=== PATIENT | male | born 1930 | race Caucasian/White ===

== ENCOUNTER 2017-03-07 16:03 | Observation (INO) | payer MEDICARE ==
--- NOTE | 2017-03-07 16:13 | EDM.PDOC ---
ED HPI GENERAL MEDICAL PROBLEM - General Stated Complaint: UNK Time Seen by Provider: 03/07/17 16:09 Source of Information: Reports: Patient - History of Present Illness INITIAL COMMENTS - FREE TEXT/NARRATIVE: HISTORY AND PHYSICAL: History of present illness: [] Patient presents via ambulance with generalized weakness, this morning he was up and about normal state of health, went out on his tractor 2 disc some tree rows and became very fatigued, he presents as such. He states initially he did have some dizziness this has resolved Or patient has been bouncing between 42 and 54 and heart rate, he is on atenolol , or a brief period I did witness the patient had a short run of atrial fibrillation lasting 3-5 seconds at a rate of 1:30 on the monitor, was converted on its own to sinus at 50 beats per minute Denies fever nausea vomiting chills sweats or chest pain shortness breath headache dizziness or palpitation no bowel or urine symptoms Review of systems: As per history of present illness and below otherwise all systems reviewed and negative. Past medical history: As per history of present illness and as reviewed below otherwise noncontributory. Surgical history: As per history of present illness and as reviewed below otherwise noncontributory. Social history: No reported history of drug or alcohol abuse. Family history: As per history of present illness and as reviewed below otherwise noncontributory. Physical exam: HEENT: Atraumatic, normocephalic, pupils reactive, negative for conjunctival pallor or scleral icterus, mucous membranes moist, throat clear, neck supple, nontender, trachea midline. Lungs: Clear to auscultation, breath sounds equal bilaterally, chest nontender. Heart: S1S2, regular, negative for clicks, rubs, or JVD. Abdomen: Soft, nondistended, nontender. Negative for masses or hepatosplenomegaly. Negative for costovertebral tenderness. Pelvis: Stable nontender. Genitourinary: Deferred. Rectal: Deferred. Extremities: Atraumatic, negative for cords or calf pain. Neurovascular unremarkable. Neuro: Awake, alert, oriented. Cranial nerves II through XII unremarkable. Cerebellum unremarkable. Motor and sensory unremarkable throughout. Exam nonfocal. Diagnostics: [] Lab as below EKG Chest one view Head CT Therapeutics: [] Beta debbie held Impression: [] Generalized weakness Bradycardia Definitive disposition and diagnosis as appropriate pending reevaluation and review of above. - Related Data Allergies Allergy/AdvReac Type Severity Reaction Status Date / Time Sulfa (Sulfonamide Allergy Mild Rash Verified 03/07/17 16:42 Antibiotics) Home Meds: Home Meds Aspirin/Calcium Carbonate/Mag [Aspirin Buffered 325 mg Tab] 325 mg PO BEDTIME [History] Gabapentin [Neurontin] 300 mg PO BID 12/10/15 [History] Hydrochlorothiazide 12.5 mg PO DAILY 12/10/15 [History] Lisinopril 20 mg PO DAILY 03/07/17 [History] Meloxicam 7.5 mg PO BID 03/07/17 [History] Past Medical History HEENT History: Reports: None Cardiovascular History: Reports: Heart Failure, Hypertension Respiratory History: Reports: None Gastrointestinal History: Reports: None Genitourinary History: Reports: Prostate disorder Musculoskeletal History: Reports: Arthritis, Other (see below) Other Musculoskeletal History: Weakness to one side, uses cane Neurological History: Reports: CVA (16 years ago) Psychiatric History: Reports: None Endocrine/Metabolic History: Reports: None Hematologic History: Reports: None Immunologic History: Reports: None Oncologic (Cancer) History: Reports: None Dermatologic History: Reports: None - Infectious Disease History Infectious Disease History: Reports: Measles, Mumps - Past Surgical History GI Surgical History: Reports: Appendectomy, Colonoscopy Musculoskeletal Surgical History: Reports: Hip replacement Social & Family History - Family History Family Medical History: Noncontributory - Tobacco Use Smoking Status *Q: Current Every Day Smoker Years of Tobacco use: 30 Packs/Tins Daily: 0.5 - Recreational Drug Use Recreational Drug Use: No ED ROS GENERAL - Review of Systems Review Of Systems: ROS reveals no pertinent complaints other than HPI. ED EXAM, GENERAL - Physical Exam Exam: See Below Course - Vital Signs Last Recorded V/S: Last Vital Signs Temp 35.6 C 03/07/17 16:05 Pulse 48 L 03/07/17 16:05 Resp 20 03/07/17 16:05 BP 156/84 H 03/07/17 16:05 Pulse Ox 97 03/07/17 16:05 - Orders/Labs/Meds Orders: Active Orders 24 hr Category Date Time Status Admission Status [Patient Status] [ADT] Stat ADT 03/07/17 17:13 Ordered EKG Documentation Completion [RC] STAT Care 03/07/17 16:08 Active Chest 1V Frontal [CR] Stat Exams 03/07/17 16:08 Taken Head wo Cont [CT] Stat Exams 03/07/17 16:13 Taken UA W/MICROSCOPIC [URIN] Stat Lab 03/07/17 16:08 Uncollected Sodium Chloride 0.9% [Normal Saline] 1,000 ml Med 03/07/17 17:00 Active IV STAT Medication Orders Sodium Chloride (Normal Saline) 1,000 mls @ 125 mls/hr IV STAT WINNIE Last Admin: 03/07/17 17:11 Dose: 125 mls/hr Labs: Laboratory Tests 03/07/17 03/07/17 03/07/17 Range/Units 16:15 16:15 16:15 WBC 8.92 (4.0-11.0) K/uL RBC 4.93 (4.50-5.90) M/uL Hgb 14.2 (13.0-17.0) g/dL Hct 43.3 (38.0-50.0) % MCV 87.8 (80.0-98.0) fL MCH 28.8 (27.0-32.0) pg MCHC 32.8 (31.0-37.0) g/dL RDW Std Deviation 48.4 (28.0-62.0) fl RDW Coeff of Ellyn 15 (11.0-15.0) % Plt Count 345 (150-400) K/uL MPV 10.00 (7.40-12.00) fL Neut % (Auto) 80.1 H (48.0-80.0) % Lymph % (Auto) 13.2 L (16.0-40.0) % [place] % (Auto) 4.7 (0.0-15.0) % Eos % (Auto) 1.3 (0.0-7.0) % Baso % (Auto) 0.7 (0.0-1.5) % Neut # (Auto) 7.1 H (1.4-5.7) K/uL Lymph # (Auto) 1.2 (0.6-2.4) K/uL [place] # (Auto) 0.4 (0.0-0.8) K/uL Eos # (Auto) 0.1 (0.0-0.7) K/uL Baso # (Auto) 0.1 (0.0-0.1) K/uL Nucleated RBC % 0.0 /100WBC Nucleated RBCs # 0 K/uL Sodium 140 (136-146) mmol/L Potassium 4.2 (3.5-5.1) mmol/L Chloride 106 (98-110) mmol/L Carbon Dioxide 21 (21-31) mmol/L BUN 28 H (6.0-23.0) mg/dL Creatinine 1.1 (0.6-1.5) mg/dL Est Cr Clr Drug Dosing 45.61 mL/min Estimated GFR (MDRD) > 60.0 ml/min Glucose 111 H (60-110) mg/dL Calcium 9.8 (8.8-10.8) mg/dL Total Bilirubin 0.7 (0.1-1.5) mg/dL AST 25 (5-40) IU/L ALT 14 (8-54) IU/L Alkaline Phosphatase 80 (40-150) Creatine Kinase 280 H (9-236) IU/L CK-MB (CK-2) 7.5 H (0-6.6) ng/ml Troponin I < 0.10 (0.0-0.29) NG/ML Total Protein 7.7 (6.0-8.0) g/dL Albumin 4.8 (3.4-4.8) g/dL Globulin 2.9 (2.0-3.5) g/dL Albumin/Globulin Ratio 1.7 (1.3-2.8) Meds: Medications Generic Name Dose Route Start Last Admin Trade Name Moon PRN Reason Stop Dose Admin Sodium Chloride 1,000 mls @ 125 mls/hr 03/07/17 17:00 03/07/17 17:11 Normal Saline IV 125 mls/hr STAT WINNIE Administration Departure - Departure Time of Disposition: 17:16 Disposition: Admitted As Inpatient 68 Condition: fair Clinical Impression: Bradycardia - My Orders Last 24 Hours: My Active Orders 03/07/17 16:08 EKG Documentation Completion [RC] STAT Chest 1V Frontal [CR] Stat UA W/MICROSCOPIC [URIN] Stat 03/07/17 16:13 Head wo Cont [CT] Stat 03/07/17 17:00 Sodium Chloride 0.9% [Normal Saline] 1,000 ml IV STAT 03/07/17 17:13 Admission Status [Patient Status] [ADT] Stat - Assessment/Plan Last 24 Hours: My Active Orders 03/07/17 16:08 EKG Documentation Completion [RC] STAT Chest 1V Frontal [CR] Stat UA W/MICROSCOPIC [URIN] Stat 03/07/17 16:13 Head wo Cont [CT] Stat 03/07/17 17:00 Sodium Chloride 0.9% [Normal Saline] 1,000 ml IV STAT 03/07/17 17:13 Admission Status [Patient Status] [ADT] Stat
[2017-03-07 16:46] LABS: CHLORIDE,CL 106 mmol/L (98-110); SODIUM,NA 140 mmol/L (136-146)
[2017-03-07] MEDS ORDERED: Sodium Chloride 0.9% 1,000 ML IV SCH (17:00)
[2017-03-07] MEDS ORDERED: Sodium Chloride 0.9% 2.5 ML Syringe FLUSH PRN (18:34)
[2017-03-07] MEDS ORDERED: Sodium Chloride 0.9% 10 ML Syringe FLUSH PRN (18:34)
[2017-03-07] MEDS ORDERED: Bisacodyl 5 MG Tab PO PRN (19:49)
[2017-03-07] MEDS ORDERED: Temazepam 15 MG Cap PO PRN (19:49)
[2017-03-07] MEDS ORDERED: Acetaminophen 325 MG Tab PO PRN (19:49)
[2017-03-07] MEDS ORDERED: Meloxicam 7.5 MG Tab PO PRN (19:51)
--- NOTE | 2017-03-07 19:54 | PCM.HP ---
H&P History of Present Illness - General Date of Service: 03/07/17 Admit Problem/Dx: Admission Diagnosis/Problem Admission Diagnosis/Problem Bradycardia Source of Information: Patient, Family, Provider - History of Present Illness Initial Comments - Free Text/Narative: He presented to the emergency department today after he felt very weak when he was on to a tractor he was seen in the emergency department and noted to have a sinus bradycardia with a heart rate in the high 30s per minute. Reportedly his told the emergency room staff that he had been on atenolol. However when I questioned him he stated that his physician has stopped the atenolol about a month ago because of a slow heart rate. He is feeling better now. Headache Pain Score (Numeric/FACES): 3 - Related Data Allergies/Adverse Reactions: Allergies Allergy/AdvReac Type Severity Reaction Status Date / Time Sulfa (Sulfonamide Allergy Mild Rash Verified 03/07/17 16:42 Antibiotics) Home Medications: Home Meds Aspirin/Calcium Carbonate/Mag [Aspirin Buffered 325 mg Tab] 325 mg PO BEDTIME [History] Gabapentin [Neurontin] 300 mg PO BID 12/10/15 [History] Hydrochlorothiazide 12.5 mg PO DAILY 12/10/15 [History] Lisinopril 10 mg PO DAILY 03/07/17 [History] Meloxicam 7.5 mg PO BID PRN 03/07/17 [History] Ranitidine [Zantac] 300 mg PO BID 03/07/17 [History] Past Medical History HEENT History: Reports: None Cardiovascular History: Reports: Hypertension Other Cardiovascular History: "low heart rate" Respiratory History: Reports: None, Other (see below) (No known history of COPD) Gastrointestinal History: Reports: None, Other (see below) (GERD) Other Gastrointestinal History: heartburn Genitourinary History: Reports: Prostate disorder. Denies: Chronic renal insuffiency Musculoskeletal History: Reports: Arthritis, Other (see below) Other Musculoskeletal History: Weakness to one side, uses cane Neurological History: Reports: CVA (He reports that he had a 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 He states that his unilateral weakness has resolved.) Psychiatric History: Reports: None Endocrine/Metabolic History: Reports: None. Denies: Green[place]'s disease, Diabetes , type I, Diabetes, type II Hematologic History: Reports: Blood transfusion(s) Immunologic History: Reports: None Oncologic (Cancer) History: Reports: None Dermatologic History: Reports: None - Infectious Disease History Infectious Disease History: Reports: Chicken pox, Measles, Mumps - Past Surgical History Cardiovascular Surgical History: Reports: None GI Surgical History: Reports: Appendectomy, Colonoscopy Neurological Surgical History: Reports: Other (see below) Other Neurological Surgeries/Procedures: spinal surgery 7 months prior to admission Musculoskeletal Surgical History: Reports: Hip replacement, Other (see below) Other Musculoskeletal Surgeries/Procedures:: bilateral hip Social & Family History - Family History Family Medical History: Noncontributory Oncologic: Reports: Esophageal - Tobacco Use Smoking Status *Q: Current Every Day Smoker Years of Tobacco use: 25 Packs/Tins Daily: 0.2 Used Tobacco, but Quit: No - Caffeine Use Caffeine Use: Reports: Coffee - Alcohol Use Date/Time of Last Drink Comment: He denies current alcohol use - Recreational Drug Use Recreational Drug Use: No H&P Review of Systems - Review of Systems: Review Of Systems: See Below General: Denies: fever, chills HEENT: Denies: sore throat Pulmonary: Denies: Shortness of Breath, Cough, Sputum Cardiovascular: Denies: chest pain Gastrointestinal: Reports: Other (Occasional epigastric discomfort which he relates to gastroesophageal reflux.). Denies: Abdominal pain, Hematemesis, Melena, Nausea Genitourinary: Denies: dysuria, frequency, burning, hematuria Psychiatric: Denies: agitation Neurological: Denies: Confusion, Seizure, Trouble Speaking, Difficulty Walking Exam - Exam Exam: See Below - Vital Signs Vital Signs: Last Vital Signs Temp 96.5 F 03/07/17 17:35 Pulse 98 03/07/17 17:35 Resp 16 03/07/17 17:35 BP 117/54 L 03/07/17 17:35 Pulse Ox 98 03/07/17 17:35 Weight: 61.7 kg - Exam General: alert, oriented, cooperative HEENT: EOMI, Mucosa moist & pink, Other (Multiple missing teeth) Neck: supple, trachea midline Lungs: Clear to auscultation, Normal respiratory effort. No: Crackles, Rales, Rhonchi Cardiovascular: regular rate, regular rhythm (Heart sounds are very distant), bradycardia Abdomen: soft. No: tenderness (Male) Exam: Deferred Extremities: No: edema Neurological: cranial nerves intact, normal speech Neuro Extensive - Mental Status: normal mood/affect Neuro Extensive - Motor, Sensory, Reflexes: No: facial palsy (L), facial palsy ( R), hemiplagia (L), hemiplagia (R) Psychiatric: normal affect, normal mood. No: agitated - Patient Data Result Diagrams: 03/07/17 16:15 03/07/17 16:15 *Q Meaningful Use (ADM) - VTE *Q VTE Criteria *Q: - Stroke *Q Stroke Criteria *Q: - AMI *Q AMI Criteria *Q: - Problem List (1) Bradycardia SNOMED Code(s): 01352708 ICD Code: R00.1 - BRADYCARDIA, UNSPECIFIED Status: Acute Current Visit: Yes Problem List Initiated/Reviewed/Updated: Yes Orders Last 24hrs: Active Orders 24 hr Category Date Time Status Activity as Tolerated [RC] .Routine Care 03/07/17 18:32 Active Antiembolic Devices [RC] PER UNIT ROUTINE Care 03/07/17 19:51 Ordered Oxygen Therapy [RC] PRN Care 03/07/17 19:49 Ordered Telemetry Monitoring [Cardiac Monitoring] [RC] Q8H Care 03/07/17 17:30 Active VTE/DVT Education [RC] PER UNIT ROUTINE Care 03/07/17 19:49 Ordered Vital Signs [RC] Q4H Care 03/07/17 19:49 Ordered Regular Diet [DIET] Diet 03/07/17 Dinner Active MAGNESIUM [CHEM] Routine Lab 03/07/17 19:49 Ordered Acetaminophen [Tylenol] Med 03/07/17 19:49 Ordered 650 mg PO Q4H PRN Aspirin/Calcium Carbonate/Mag [Aspirin Buffered 325 mg Med 03/07/17 21:00 Ordered Tab] 325 mg PO BEDTIME Bisacodyl [Dulcolax] Med 03/07/17 19:49 Ordered 5 mg PO DAILY PRN Gabapentin [Neurontin] Med 03/07/17 21:00 Ordered 300 mg PO BID Hydrochlorothiazide [Hydrochlorothiazide] Med 03/08/17 09:00 Ordered 12.5 mg PO DAILY Lisinopril Med 03/08/17 09:00 Ordered 10 mg PO DAILY Meloxicam [Mobic] Med 03/07/17 19:51 Ordered 7.5 mg PO BID PRN Ranitidine Med 03/07/17 21:00 Ordered 300 mg PO BID Sodium Chloride 0.9% [Saline Flush] Med 03/07/17 18:34 Active 10 ml FLUSH ASDIRECTED PRN Sodium Chloride 0.9% [Saline Flush] Med 03/07/17 18:34 Active 2.5 ml FLUSH ASDIRECTED PRN Temazepam [Restoril] Med 03/07/17 19:49 Ordered 15 mg PO BEDTIME PRN Convert IV to Saline Lock [OM.PC] Routine Oth 03/07/17 18:34 Ordered Sequential Compression Device [OM.PC] Per Unit Routine Oth 03/07/17 19:50 Ordered Resuscitation Status Routine Resus Stat 03/07/17 19:49 Ordered Medication Orders Sodium Chloride (Saline Flush) 10 ml FLUSH ASDIRECTED PRN PRN Reason: Keep Vein Open Sodium Chloride (Saline Flush) 2.5 ml FLUSH ASDIRECTED PRN PRN Reason: Keep Vein Open Assessment/Plan Comment:: Initially it was thought that he has been on a beta debbie. However he suggest that he stop the beta debbie about a month ago. I advised we'll watch him overnight and discuss whether or not he may be in patient versus outpatient cardiology referral for consideration of pacemaker.
[2017-03-07] MEDS ORDERED: Aspirin 325 MG Tab.EC PO SCH (21:00)
[2017-03-07] MEDS: Gabapentin 300 MG Cap PO SCH (21:13)
[2017-03-07] MEDS: Famotidine 20 MG Tab PO SCH (21:13)
[2017-03-08] MEDS: Famotidine 20 MG Tab PO SCH (08:58)
[2017-03-08 08:59] VITALS: BP 103/55
[2017-03-08] MEDS: Gabapentin 300 MG Cap PO SCH (08:59)
[2017-03-08] MEDS ORDERED: Hydrochlorothiazide 12.5 MG Cap PO SCH (09:00)
[2017-03-08] MEDS ORDERED: Lisinopril 10 MG Tab PO SCH (09:00)
--- NOTE | 2017-03-08 10:51 | PCM.DCSUM1 ---
Discharge Summary - Hospital Course Brief History: He was admitted with symptomatic bradycardia as per history and physical examination - Discharge Data Discharge Date: 03/08/17 Discharge Disposition: Home, Self-Care 01 Condition: Fair - Discharge Diagnosis/Problem(s) (1) Bradycardia SNOMED Code(s): 62092783 ICD Code: R00.1 - BRADYCARDIA, UNSPECIFIED Status: Acute Current Visit: Yes - Patient Summary/Data Hospital Course: Initially he said he had been taking atenolol. Later he said that he had not taken it for a month. Name event he was not given any beta debbie. His heart rate remained in a sinus rhythm with bradycardia. His heart rate did vary from the low 50s to greater than 60 / min. . He is feeling much better at discharge. Initially I had advised him that he would likely need a pacemaker. However he has shown a bradycardia in the hospital but did not within a persistent heart rate below 50. I recommended therefore that he followup with Dr. Ceballos in the next 2 weeks. Also to followup if signs or symptoms of dizziness or weakness occur. Atenolol is discontinued but may have been discontinued previously. I advised that as he is improving it is not certain that he will need a pacemaker. I advised a pacemaker still may be a possibility the future. Assessment: sinus bradycardia. follow up with Dr Ceballos within two weeks. - Discharge Plan Home Medications: Home Meds Aspirin/Calcium Carbonate/Mag [Aspirin Buffered 325 mg Tab] 325 mg PO BEDTIME [History] Gabapentin [Neurontin] 300 mg PO BID 12/10/15 [History] Hydrochlorothiazide 12.5 mg PO DAILY 12/10/15 [History] Lisinopril 10 mg PO DAILY 03/07/17 [History] Meloxicam 7.5 mg PO BID PRN 03/07/17 [History] Ranitidine [Zantac] 300 mg PO BID 03/07/17 [History] Forms: ED Department Discharge Referrals: Nestor Ceballos MD [Primary Care Provider] - - Patient Data Vitals - Most Recent: Last Vital Signs Temp 97.1 F 03/08/17 08:00 Pulse 65 03/08/17 08:00 Resp 18 03/08/17 08:00 BP 103/55 L 03/08/17 08:59 Pulse Ox 93 L 03/08/17 08:00 Weight - Most Recent: 61.7 kg I&O - Last 24 hours: Intake & Output 03/07/17 03/08/17 03/08/17 22:59 06:59 14:59 Intake Total 400 Output Total 300 Balance 100 Lab Results - Last 24 hrs: Laboratory Results - last 24 hr 03/07/17 03/08/17 Range/Units 20:15 02:00 Troponin I < 0.10 < 0.10 (0.0-0.29) NG/ML Med Orders - Current: Current Medications Acetaminophen (Tylenol) 650 mg PO Q4H PRN PRN Reason: Pain (Mild 1-3)/fever Aspirin (Ecotrin) 325 mg PO BEDTIME [facility] Last Admin: 03/07/17 21:13 Dose: 325 mg Bisacodyl (Dulcolax) 5 mg PO DAILY PRN PRN Reason: Constipation Famotidine (Pepcid) 20 mg PO BID [facility] Last Admin: 03/08/17 08:58 Dose: 20 mg Gabapentin (Neurontin) 300 mg PO BID [facility] Last Admin: 03/08/17 08:59 Dose: 300 mg Hydrochlorothiazide (Hydrochlorothiazide) 12.5 mg PO DAILY [facility] Last Admin: 03/08/17 08:58 Dose: 12.5 mg Lisinopril (Prinivil) 10 mg PO DAILY [facility] Last Admin: 03/08/17 08:59 Dose: 10 mg Meloxicam (Mobic) 7.5 mg PO BID PRN PRN Reason: back pain Sodium Chloride (Saline Flush) 10 ml FLUSH ASDIRECTED PRN PRN Reason: Keep Vein Open Sodium Chloride (Saline Flush) 2.5 ml FLUSH ASDIRECTED PRN PRN Reason: Keep Vein Open Temazepam (Restoril) 15 mg PO BEDTIME PRN PRN Reason: Sleep Last Admin: 03/07/17 23:41 Dose: 15 mg Discontinued Medications Sodium Chloride (Normal Saline) 1,000 mls @ 125 mls/hr IV STAT [facility] Last Admin: 03/07/17 17:11 Dose: 125 mls/hr *Q Meaningful Use (DIS) - VTE *Q VTE Criteria *Q: - Stroke *Q Stroke Criteria *Q: - AMI *Q AMI Criteria *Q:
--- NOTE | 2017-03-09 10:27 | CT ---
EXAM DATE: 03/07/17 PATIENT'S AGE: 86 Patient: MILAN CARR Facility: [place], [place] Site . Site : [id number] Study: CT Head [id number]/22/2017 4:43:04 PM Ordering Physician: Eldon Velazquez Final Report: INDICATION: Weak. Dizzy. TECHNIQUE: CT head without IV contrast. FINDINGS: Small amounts of fluid opacification in the right ethmoidal sinus is less diffuse than previous. The fluid and mucosal thickening in the right maxillary sinus has resolved. 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 Tiny additional old lacunar infarct in the right basal ganglia more laterally not well seen on the prior study. Mild diffuse cerebral and cerebellar atrophy. No intracranial hemorrhage, edema, or mass-effect. Remainder negative. IMPRESSION: 1. No acute intracranial disease. Chronic intracranial disease as above. 2. Minimal inflammatory changes in the right ethmoidal sinuses less prominent. Dictated by Coredll Smith MD @ 03/07/2017 4:50:27 PM Dictated by: Cordell Smith MD @ 03/07/2017 16:50:36 (Electronic Signature) Report Signed by Proxy and Original Signed Document filed in the Medical Record. MTDD
--- NOTE | 2017-03-09 10:28 | CR ---
EXAM DATE: 03/07/17 PATIENT'S AGE: 86 Patient: MILAN CARR Facility: [place], [place] Site . Site : [id number] Study: XRay Chest [id number]/22/2017 4:46:49 PM Ordering Physician: Eldon Velazquez Final Report: HISTORY: Weak and dizzy. Findings: Single AP view of the chest is provided. The lungs are normally expanded and clear. No pleural effusion or pneumothorax is seen. Cardiac silhouette size is within normal limits. Impression: Clear lungs. Dictated by Yves Bennett MD @ Mar 07 2017 5:08PM (Electronic Signature) Report Signed by Proxy and Original Signed Document filed in the Medical Record. MTDD
== END 2017-03-08 11:00 | disposition home or self-care (01) ==
LOC: MW.ED 16:03 → MW.MS 17:13 → MW.ED 17:28
PROVIDERS: ADMIT Family Medicine; ATTEND Family Medicine
DX: R00.1 Bradycardia, unspecified (principal); I10 Essential (primary) hypertension; K21.9 Gastro-esophageal reflux disease without esophagitis; M19.90 Unspecified osteoarthritis, unspecified site; Z86.73 Personal history of transient ischemic attack (TIA), and cerebral infarction without residual deficits; Z79.82 Long term (current) use of aspirin; Z79.899 Other long term (current) drug therapy; Z88.2 Allergy status to sulfonamides; F17.200 Nicotine dependence, unspecified, uncomplicated
CPT/HCPCS: 36415; 70450; 71010; 80053; 82550; 82553; 83735; 84484; 85025; 93005; 99285; A9270; J7040; G0378

== ENCOUNTER → 2017-03-23 | Outpatient (CLI) | payer MEDICARE | LOC: MW.CHFP 08:00 | PROVIDERS: ATTEND Emergency Medicine | DX: N41.1 Chronic prostatitis (principal); I10 Essential (primary) hypertension; M19.90 Unspecified osteoarthritis, unspecified site; G62.9 Polyneuropathy, unspecified | CPT/HCPCS: 99214 ==

== ENCOUNTER 2018-03-07 17:09 | Inpatient (IN) | payer MEDICARE ==
[2018-03-07] MEDS ORDERED: Ondansetron 4 MG/2 ML SDV ONE (17:19)
[2018-03-07] MEDS ORDERED: Sodium Chloride 0.9% 2.5 ML Syringe FLUSH PRN (17:19)
[2018-03-07] MEDS ORDERED: Sodium Chloride 0.9% 10 ML Syringe FLUSH PRN (17:19)
--- NOTE | 2018-03-07 17:25 | EDM.PDOC ---
ED HPI GENERAL MEDICAL PROBLEM - General Chief Complaint: General Stated Complaint: CHEST PAIN Time Seen by Provider: 03/07/18 17:14 - History of Present Illness INITIAL COMMENTS - FREE TEXT/NARRATIVE: HISTORY AND PHYSICAL: History of present illness: The patient is a 87-year-old male who follows with Dr. Ceballos in the clinic and has hypertension as well as a history of a stroke in the past with some left- sided weakness for which he uses a cane to ambulate and presents via EMS after having a brief syncopal event. According to the history from family he was working in the garage and came into the house and then did look quite right and then proceeded to pass out but was caught without hitting the floor and striking his head. According to and patient he had no symptoms prior to this of fever chills chest pain palpitations shortness of breath abdominal pain nausea vomiting or diarrhea. The patient said he had a normal bowel movement yesterday was was not black or bloody and not watery. He states he has been eating his meals and has no abdominal pain or chest pain currently in the ED. He has no new weakness and says he always has some right leg weakness. He has no other neurosensory changes and denies a headache. Initially EMS said that his blood pressure was very high and then the got a low level and started giving him IV fluids. The patient was nauseated here in the ED but says that is new and he did not have that earlier. He has no extremity pain no neck pain or back pain. Review of systems: As per history of present illness and below otherwise all systems reviewed and negative. Past medical history: As per history of present illness and as reviewed below otherwise noncontributory. Surgical history: As per history of present illness and as reviewed below otherwise noncontributory. Social history: No reported history of drug or alcohol abuse. Family history: As per history of present illness and as reviewed below otherwise noncontributory. Physical exam: General: Well-developed thin man who looks somewhat L and is diaphoretic. Vital signs are noted by me. Patient has some dry heaving in the ED. Patient is speaking clearly and answering questions HEENT: Atraumatic, normocephalic, pupils reactive, negative for conjunctival pallor or scleral icterus, mucous membranes moist, throat clear, neck supple, nontender, trachea midline. Lungs: Clear to auscultation, breath sounds equal bilaterally, chest nontender. No worker breathing stridor or wheezing Heart: S1S2, regular, and rhythm no overt murmurs Abdomen: Soft, nondistended, nontender. Negative for masses or hepatosplenomegaly. Slightly hypoactive bowel sounds and a scaphoid abdomen without rebound or guarding Pelvis: Stable nontender. Genitourinary: Deferred. Rectal: Deferred. Patient did have a large soft brown bowel movement while in the ED which was Hemoccult positive although not grossly bloody Extremities: Atraumatic, negative for cords or calf pain. Neurovascular unremarkable. Full range of motion without defects or deficits Neuro: Awake, alert, oriented. Cranial nerves II through XII unremarkable. Cerebellum unremarkable. Motor has very subtle weakness of the right lower extremity on straight leg rise that otherwise good dorsi and plantar flexion and sensory unremarkable throughout. Exam nonfocal. Back: There are no midline step-offs or defects of the thoracic or lumbar spine Skin: Overall pale/sallow appearance and there is slight diaphoresis noted of extremities and trunk Diagnostics: EKG CBC CMP INR troponin UA lactic acid chest x-ray CT scan of the head urine culture blood cultures type and screen Therapeutics: IV O2 monitor Zofran IV fluids Protonix Please note that initially the blood pressure when the patient arrived had a systolic of 195 but the patient looked more symptomatic of hypotension bimanual was performed which revealed a systolic of 65 currently. IV fluids will be given and patient is awake alert and speaking. Please note on computer review of the patient's history he did have an admission exactly 1 year ago for bradycardia. The only labs I have to compare with today's are those labs 1849: Patient looks significantly improved and now is no longer diaphoretic and has good color and is interactive and stating he has no complaints. He is aware of his testing results and my concerns with today's hemoglobin as he has not had a blood count since a year ago. Patient is also aware of his renal function and his occult blood positive on the stool. Currently he is looking improved and I discussed this case with the hospitalist Dr Castellanos who agrees with observation admission for syncopal event to telemetry but would like us to give another liter of fluid and reevaluate his blood pressure to ensure that he is stable for the floor. The patient has not given a urine sample but we will obtain this and send it for UA and urine culture prior to disposition. I will endorse this case to Dr. Ballesteros at 7 PM to just follow-up with the patient's blood pressure and recontact the hospitalist as needed Impression: Syncopal event, heme positive stool in the emergency department with anemia and renal insufficiency Definitive disposition and diagnosis as appropriate pending reevaluation and review of above. - Related Data Allergies Allergy/AdvReac Type Severity Reaction Status Date / Time Sulfa (Sulfonamide Allergy Mild Rash Verified 03/07/17 16:42 Antibiotics) Home Meds: Home Meds Gabapentin [Neurontin] 300 mg PO BID 12/10/15 [History] Hydrochlorothiazide 12.5 mg PO DAILY 12/10/15 [History] Lisinopril 10 mg PO DAILY 03/07/17 [History] Past Medical History HEENT History: Reports: None Cardiovascular History: Reports: Hypertension Other Cardiovascular History: "low heart rate" Respiratory History: Reports: None, Other (See Below) Gastrointestinal History: Reports: None, Other (See Below) Other Gastrointestinal History: heartburn Genitourinary History: Reports: Prostate Disorder Musculoskeletal History: Reports: Arthritis, Other (See Below) Other Musculoskeletal History: Weakness to one side, uses cane Neurological History: Reports: CVA (He reports that he had a 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 He states that his unilateral weakness has resolved.) Psychiatric History: Reports: None Endocrine/Metabolic History: Reports: None. Denies: Edwards's Disease, Diabetes , Type I, Diabetes, Type II Hematologic History: Reports: Blood Transfusion(s) Immunologic History: Reports: None Oncologic (Cancer) History: Reports: None Dermatologic History: Reports: None - Infectious Disease History Infectious Disease History: Reports: Chicken Pox, Measles, Mumps - Past Surgical History Neurological Surgical History: Reports: Other (See Below) Musculoskeletal Surgical History: Reports: Hip Replacement, Other (See Below) Social & Family History - Family History Family Medical History: Noncontributory Oncologic: Reports: Esophageal - Tobacco Use Smoking Status *Q: Current Every Day Smoker Years of Tobacco use: 25 Packs/Tins Daily: 0.2 Used Tobacco, but Quit: No - Caffeine Use Caffeine Use: Reports: Coffee - Recreational Drug Use Recreational Drug Use: No ED ROS GENERAL - Review of Systems Review Of Systems: ROS reveals no pertinent complaints other than HPI. ED EXAM, GENERAL - Physical Exam Exam: See Below (See dictation) Course - Vital Signs Last Recorded V/S: Last Vital Signs Temp 36.1 C 03/07/18 18:25 Pulse 56 L 03/07/18 18:25 Resp 20 03/07/18 18:25 BP 90/36 L 03/07/18 18:25 Pulse Ox 100 03/07/18 18:25 - Orders/Labs/Meds Orders: Active Orders 24 hr Category Date Time Status Cardiac Monitoring [RC] . DIRECTED Care 03/07/18 17:19 Active EKG Documentation Completion [RC] STAT Care 03/07/18 17:19 Active Fecal Occult Blood Collection [RC] ASDIRECTED Care 03/07/18 18:58 Active Oxygen Therapy, ED [RC] ASDIRECTED Care 03/07/18 17:19 Active Pulse Oximetry [RC] ASDIRECTED Care 03/07/18 17:19 Active Chest 1V Frontal [CR] Stat Exams 03/07/18 17:20 Taken Head wo Cont [CT] Stat Exams 03/07/18 17:20 Taken CULTURE BLOOD [BC] Stat Lab 03/07/18 17:26 Received CULTURE BLOOD [BC] Stat Lab 03/07/18 18:15 Received CULTURE URINE [RM] Stat Lab 03/07/18 17:49 Ordered TYPE AND SCREEN [BBK] Stat Lab 03/07/18 17:26 Received UA W/MICROSCOPIC [URIN] Stat Lab 03/07/18 17:20 Ordered Sodium Chloride 0.9% [Normal Saline] 1,000 ml Med 03/07/18 18:51 Active IV STAT Sodium Chloride 0.9% [Saline Flush] Med 03/07/18 17:19 Active 10 ml FLUSH ASDIRECTED PRN Sodium Chloride 0.9% [Saline Flush] Med 03/07/18 17:19 Active 2.5 ml FLUSH ASDIRECTED PRN Blood Culture x2 Reflex Set [OM.PC] Stat Oth 03/07/18 17:49 Ordered Saline Lock Insert [OM.PC] Stat Oth 03/07/18 17:19 Ordered Medication Orders Sodium Chloride (Normal Saline) 1,000 mls @ 999 mls/hr IV STAT ONE Stop: 03/07/18 19:51 Last Admin: 03/07/18 18:52 Dose: 999 mls/hr Sodium Chloride (Saline Flush) 10 ml FLUSH ASDIRECTED PRN PRN Reason: Keep Vein Open Sodium Chloride (Saline Flush) 2.5 ml FLUSH ASDIRECTED PRN PRN Reason: Keep Vein Open Labs: Laboratory Tests 03/07/18 03/07/18 03/07/18 Range/Units 17:26 17:26 17:26 WBC 13.22 H (4.0-11.0) K/uL RBC 3.95 L (4.50-5.90) M/uL Hgb 9.0 L (13.0-17.0) g/dL Hct 29.1 L (38.0-50.0) % MCV 73.7 L (80.0-98.0) fL MCH 22.8 L (27.0-32.0) pg MCHC 30.9 L (31.0-37.0) g/dL RDW Std Deviation 42.1 (28.0-62.0) fl RDW Coeff of Ellyn 16 H (11.0-15.0) % Plt Count 607 H (150-400) K/uL MPV 9.50 (7.40-12.00) fL Neut % (Auto) 79.9 (48.0-80.0) % Lymph % (Auto) 13.2 L (16.0-40.0) % [place] % (Auto) 5.1 (0.0-15.0) % Eos % (Auto) 1.0 (0.0-7.0) % Baso % (Auto) 0.8 (0.0-1.5) % Neut # (Auto) 10.6 H (1.4-5.7) K/uL Lymph # (Auto) 1.7 (0.6-2.4) K/uL [place] # (Auto) 0.7 (0.0-0.8) K/uL Eos # (Auto) 0.1 (0.0-0.7) K/uL Baso # (Auto) 0.1 (0.0-0.1) K/uL Nucleated RBC % 0.0 /100WBC Nucleated RBCs # 0 K/uL INR 1.05 Lactate (0.20-2.00) mmol/L Sodium 142 (136-148) mmol/L Potassium 4.0 (3.5-5.1) mmol/L Chloride 106 (98-107) mmol/L Carbon Dioxide 20.6 L (21.0-32.0) mmol/L BUN 38 H (7.0-18.0) mg/dL Creatinine 1.6 H (0.8-1.3) mg/dL Est Cr Clr Drug Dosing TNP Estimated GFR (MDRD) 41.3 ml/min Glucose 152 H (74-106) mg/dL Calcium 9.5 (8.5-10.1) mg/dL Total Bilirubin 0.4 (0.2-1.0) mg/dL AST 21 (15-37) IU/L ALT 13 L (14-63) IU/L Alkaline Phosphatase 61 (46-116) U/L Troponin I < 0.050 (0.000-0.056) ng/mL Total Protein 6.5 (6.4-8.2) g/dL Albumin 3.8 (3.4-5.0) g/dL Globulin 2.7 (2.0-3.5) g/dL Albumin/Globulin Ratio 1.4 (1.3-2.8) 03/07/18 Range/Units 17:26 WBC (4.0-11.0) K/uL RBC (4.50-5.90) M/uL Hgb (13.0-17.0) g/dL Hct (38.0-50.0) % MCV (80.0-98.0) fL MCH (27.0-32.0) pg MCHC (31.0-37.0) g/dL RDW Std Deviation (28.0-62.0) fl RDW Coeff of Ellyn (11.0-15.0) % Plt Count (150-400) K/uL MPV (7.40-12.00) fL Neut % (Auto) (48.0-80.0) % Lymph % (Auto) (16.0-40.0) % [place] % (Auto) (0.0-15.0) % Eos % (Auto) (0.0-7.0) % Baso % (Auto) (0.0-1.5) % Neut # (Auto) (1.4-5.7) K/uL Lymph # (Auto) (0.6-2.4) K/uL [place] # (Auto) (0.0-0.8) K/uL Eos # (Auto) (0.0-0.7) K/uL Baso # (Auto) (0.0-0.1) K/uL Nucleated RBC % /100WBC Nucleated RBCs # K/uL INR Lactate 2.8 H (0.20-2.00) mmol/L Sodium (136-148) mmol/L Potassium (3.5-5.1) mmol/L Chloride (98-107) mmol/L Carbon Dioxide (21.0-32.0) mmol/L BUN (7.0-18.0) mg/dL Creatinine (0.8-1.3) mg/dL Est Cr Clr Drug Dosing Estimated GFR (MDRD) ml/min Glucose (74-106) mg/dL Calcium (8.5-10.1) mg/dL Total Bilirubin (0.2-1.0) mg/dL AST (15-37) IU/L ALT (14-63) IU/L Alkaline Phosphatase (46-116) U/L Troponin I (0.000-0.056) ng/mL Total Protein (6.4-8.2) g/dL Albumin (3.4-5.0) g/dL Globulin (2.0-3.5) g/dL Albumin/Globulin Ratio (1.3-2.8) Meds: Medications Generic Name Dose Route Start Last Admin Trade Name Freq PRN Reason Stop Dose Admin Sodium Chloride 1,000 mls @ 999 mls/hr 03/07/18 18:51 03/07/18 18:52 Normal Saline IV 03/07/18 19:51 999 mls/hr STAT ONE Administration Sodium Chloride 10 ml 03/07/18 17:19 Saline Flush FLUSH ASDIRECTED PRN Keep Vein Open Sodium Chloride 2.5 ml 03/07/18 17:19 Saline Flush FLUSH ASDIRECTED PRN Keep Vein Open Discontinued Medications Generic Name Dose Route Start Last Admin Trade Name Freq PRN Reason Stop Dose Admin Sodium Chloride 1,000 mls @ 999 mls/hr 03/07/18 17:29 03/07/18 17:31 Normal Saline IV 03/07/18 18:29 999 mls/hr STAT ONE Administration Ondansetron HCl 4 mg 04/22/18 17:27 03/07/18 17:28 Zofran IVPUSH 03/07/18 17:28 4 mg ONETIME ONE Administration Pantoprazole Sodium 80 mg 03/07/18 18:12 03/07/18 18:44 Protonix Iv IVPUSH 03/07/18 18:13 80 mg .BOLUS ONE Administration Departure - Departure Time of Disposition: 19:02 Disposition: Refer to Observation Condition: Good Clinical Impression: Occult blood positive stool Syncope Qualifiers: Syncope type: unspecified Qualified Code(s): R55 - Syncope and collapse Hypotension Qualifiers: Hypotension type: unspecified hypotension type Qualified Code(s): I95.9 - Hypotension, unspecified - Discharge Information Referrals: Nestor Ceballos MD [Primary Care Provider] - Forms: ED Department Discharge - My Orders Last 24 Hours: My Active Orders 03/07/18 17:19 Cardiac Monitoring [RC] . DIRECTED EKG Documentation Completion [RC] STAT Oxygen Therapy, ED [RC] ASDIRECTED Pulse Oximetry [RC] ASDIRECTED Sodium Chloride 0.9% [Saline Flush] 10 ml FLUSH ASDIRECTED PRN Sodium Chloride 0.9% [Saline Flush] 2.5 ml FLUSH ASDIRECTED PRN Saline Lock Insert [OM.PC] Stat 03/07/18 17:20 Chest 1V Frontal [CR] Stat Head wo Cont [CT] Stat UA W/MICROSCOPIC [URIN] Stat 03/07/18 17:26 CULTURE BLOOD [BC] Stat TYPE AND SCREEN [BBK] Stat 03/07/18 17:49 CULTURE URINE [RM] Stat Blood Culture x2 Reflex Set [OM.PC] Stat 03/07/18 18:15 CULTURE BLOOD [BC] Stat 03/07/18 18:51 Sodium Chloride 0.9% [Normal Saline] 1,000 ml IV STAT 03/07/18 18:58 Fecal Occult Blood Collection [RC] ASDIRECTED - Assessment/Plan Last 24 Hours: My Active Orders 03/07/18 17:19 Cardiac Monitoring [RC] . DIRECTED EKG Documentation Completion [RC] STAT Oxygen Therapy, ED [RC] ASDIRECTED Pulse Oximetry [RC] ASDIRECTED Sodium Chloride 0.9% [Saline Flush] 10 ml FLUSH ASDIRECTED PRN Sodium Chloride 0.9% [Saline Flush] 2.5 ml FLUSH ASDIRECTED PRN Saline Lock Insert [OM.PC] Stat 03/07/18 17:20 Chest 1V Frontal [CR] Stat Head wo Cont [CT] Stat UA W/MICROSCOPIC [URIN] Stat 03/07/18 17:26 CULTURE BLOOD [BC] Stat TYPE AND SCREEN [BBK] Stat 03/07/18 17:49 CULTURE URINE [RM] Stat Blood Culture x2 Reflex Set [OM.PC] Stat 03/07/18 18:15 CULTURE BLOOD [BC] Stat 03/07/18 18:51 Sodium Chloride 0.9% [Normal Saline] 1,000 ml IV STAT 03/07/18 18:58 Fecal Occult Blood Collection [RC] ASDIRECTED
[2018-03-07] MEDS ORDERED: Ondansetron 4 MG/2 ML SDV IVPUSH ONE (17:27)
[2018-03-07] MEDS ORDERED: Sodium Chloride 0.9% 1,000 ML IV ONE ×2 (17:29→18:51)
[2018-03-07 18:02] LABS: CHLORIDE,CL 106 mmol/L (98-107); SODIUM,NA 142 mmol/L (136-148)
[2018-03-07] MEDS ORDERED: Pantoprazole 40 MG Vial IVPUSH ONE (18:12)
[2018-03-07] MEDS ORDERED: Lactated Ringers 1,000 ML IV ONE (21:56)
[2018-03-07] MEDS: Hydrocortisone Sodium Succinate 100 MG/2 ML SDV IVPUSH SCH (22:43)
--- NOTE | 2018-03-07 22:58 | PCM.CONS ---
H&P History of Present Illness - General Date of Service: 03/07/18 Admit Problem/Dx: Admission Diagnosis/Problem Admission Diagnosis/Problem Syncope Source of Information: Patient History Limitations: Reports: No Limitations - History of Present Illness Initial Comments - Free Text/Narative: Patient is an 87-year-old male with a PMHx significant for hypertension as well as a history of a stroke with mild deficitis who presented to the ER via EMS after having a brief syncopal event. According to the history from family he was working in the garage and came into the house and then did look quite right and then proceeded to pass out but was caught without hitting the floor and striking his head. He had a similar episode last year and was found to be bradycardic. At the time he was on atenolol. He was hypotensive and given IVF. His hgb was 9. FOBT was positive. He started having diarrhea and dark stools today. His last colonoscopy was ~[address] Barger. He denies any recent changes in his weight or bowel habits. He is a former smoker. He has never had an EGD. He gets an upset stomach with his "arthritis" medication (he is on gabapentin) and states that he takes "pills" for it. I dont see any prescribed anti-acids. denies Pain Score (Numeric/FACES): 0 - Related Data Allergies/Adverse Reactions: Allergies Allergy/AdvReac Type Severity Reaction Status Date / Time Sulfa (Sulfonamide Allergy Mild Rash Verified 03/07/17 16:42 Antibiotics) Home Medications: Home Meds Gabapentin [Neurontin] 300 mg PO BID 12/10/15 [History] Hydrochlorothiazide 12.5 mg PO DAILY 12/10/15 [History] Lisinopril 10 mg PO DAILY 03/07/17 [History] Past Medical History HEENT History: Reports: None Cardiovascular History: Reports: Hypertension Other Cardiovascular History: "low heart rate" Respiratory History: Reports: None Gastrointestinal History: Reports: None, Other (See Below) Other Gastrointestinal History: heartburn Genitourinary History: Reports: Prostate Disorder Musculoskeletal History: Reports: Arthritis, Other (See Below) Other Musculoskeletal History: Weakness to one side, uses cane Neurological History: Reports: CVA (He reports that he had a 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 He states that his unilateral weakness has resolved.) Psychiatric History: Reports: None Endocrine/Metabolic History: Reports: None Hematologic History: Reports: Blood Transfusion(s) Immunologic History: Reports: None Oncologic (Cancer) History: Reports: None Dermatologic History: Reports: None - Infectious Disease History Infectious Disease History: Reports: Chicken Pox, Measles, Mumps - Past Surgical History GI Surgical History: Reports: Cholecystectomy Neurological Surgical History: Reports: Other (See Below) Musculoskeletal Surgical History: Reports: Hip Replacement, Other (See Below) Social & Family History - Family History Family Medical History: Noncontributory Oncologic: Reports: Esophageal - Tobacco Use Smoking Status *Q: Current Every Day Smoker Years of Tobacco use: 40 Packs/Tins Daily: 0.5 Used Tobacco, but Quit: No Second Hand Smoke Exposure: No - Caffeine Use Caffeine Use: Reports: Coffee - Recreational Drug Use Recreational Drug Use: No H&P Review of Systems - Review of Systems: Review Of Systems: ROS reveals no pertinent complaints other than HPI. Exam - Exam Exam: See Below - Vital Signs Vital Signs: Last Vital Signs Temp 36.1 C 03/07/18 20:45 Pulse 58 L 03/07/18 20:45 Resp 17 03/07/18 20:45 BP 99/44 L 03/07/18 20:45 Pulse Ox 95 03/07/18 20:45 Weight: 61.7 kg - Exam General: Alert, Oriented HEENT: Conjunctiva Clear, Posterior Pharynx Clear, Pupils Equal Neck: Supple Lungs: Clear to Auscultation, Normal Respiratory Effort Cardiovascular: Regular Rate, Regular Rhythm GI/Abdominal Exam: Soft, Non-Tender, No Distention, Pelvis Stable Rectal (Males) Exam: Black Stool - Patient Data Lab Results Last 24 hrs: Laboratory Results - last 24 hr 03/07/18 03/07/18 03/07/18 Range/Units 17:26 17:26 17:26 WBC 13.22 H (4.0-11.0) K/uL RBC 3.95 L (4.50-5.90) M/uL Hgb 9.0 L (13.0-17.0) g/dL Hct 29.1 L (38.0-50.0) % MCV 73.7 L (80.0-98.0) fL MCH 22.8 L (27.0-32.0) pg MCHC 30.9 L (31.0-37.0) g/dL RDW Std Deviation 42.1 (28.0-62.0) fl RDW Coeff of Ellyn 16 H (11.0-15.0) % Plt Count 607 H (150-400) K/uL MPV 9.50 (7.40-12.00) fL Neut % (Auto) 79.9 (48.0-80.0) % Lymph % (Auto) 13.2 L (16.0-40.0) % Dougherty % (Auto) 5.1 (0.0-15.0) % Eos % (Auto) 1.0 (0.0-7.0) % Baso % (Auto) 0.8 (0.0-1.5) % Neut # (Auto) 10.6 H (1.4-5.7) K/uL Lymph # (Auto) 1.7 (0.6-2.4) K/uL Dougherty # (Auto) 0.7 (0.0-0.8) K/uL Eos # (Auto) 0.1 (0.0-0.7) K/uL Baso # (Auto) 0.1 (0.0-0.1) K/uL Nucleated RBC % 0.0 /100WBC Nucleated RBCs # 0 K/uL INR 1.05 Lactate (0.20-2.00) mmol/L Sodium 142 (136-148) mmol/L Potassium 4.0 (3.5-5.1) mmol/L Chloride 106 (98-107) mmol/L Carbon Dioxide 20.6 L (21.0-32.0) mmol/L BUN 38 H (7.0-18.0) mg/dL Creatinine 1.6 H (0.8-1.3) mg/dL Est Cr Clr Drug Dosing TNP Estimated GFR (MDRD) 41.3 ml/min Glucose 152 H (74-106) mg/dL Calcium 9.5 (8.5-10.1) mg/dL Total Bilirubin 0.4 (0.2-1.0) mg/dL AST 21 (15-37) IU/L ALT 13 L (14-63) IU/L Alkaline Phosphatase 61 (46-116) U/L Troponin I < 0.050 (0.000-0.056) ng/mL Total Protein 6.5 (6.4-8.2) g/dL Albumin 3.8 (3.4-5.0) g/dL Globulin 2.7 (2.0-3.5) g/dL Albumin/Globulin Ratio 1.4 (1.3-2.8) Urine Color Urine Appearance Urine pH (5.0-8.0) Ur Specific [place] (1.001-1.035) Urine Protein (NEGATIVE) mg/dL Urine Glucose (UA) (NEGATIVE) mg/dL Urine Ketones (NEGATIVE) mg/dL Urine Occult Blood (NEGATIVE) Urine Nitrite (NEGATIVE) Urine Bilirubin (NEGATIVE) Urine Ictotest Urine Urobilinogen (<2.0) EU/dL Ur Leukocyte Esterase (NEGATIVE) Urine RBC (0-2/HPF) Urine WBC (0-5/HPF) Ur Epithelial Cells (NONE-FEW) Urine Bacteria (NEGATIVE) Hyaline Casts (0-2/LPF) H. pylori IgG Antibody (NEG) Blood Type Antibody Screen Crossmatch 03/07/18 03/07/18 03/07/18 Range/Units 17:26 17:26 17:26 WBC (4.0-11.0) K/uL RBC (4.50-5.90) M/uL Hgb (13.0-17.0) g/dL Hct (38.0-50.0) % MCV (80.0-98.0) fL MCH (27.0-32.0) pg MCHC (31.0-37.0) g/dL RDW Std Deviation (28.0-62.0) fl RDW Coeff of Ellyn (11.0-15.0) % Plt Count (150-400) K/uL MPV (7.40-12.00) fL Neut % (Auto) (48.0-80.0) % Lymph % (Auto) (16.0-40.0) % Dougherty % (Auto) (0.0-15.0) % Eos % (Auto) (0.0-7.0) % Baso % (Auto) (0.0-1.5) % Neut # (Auto) (1.4-5.7) K/uL Lymph # (Auto) (0.6-2.4) K/uL Dougherty # (Auto) (0.0-0.8) K/uL Eos # (Auto) (0.0-0.7) K/uL Baso # (Auto) (0.0-0.1) K/uL Nucleated RBC % /100WBC Nucleated RBCs # K/uL INR Lactate 2.8 H (0.20-2.00) mmol/L Sodium (136-148) mmol/L Potassium (3.5-5.1) mmol/L Chloride (98-107) mmol/L Carbon Dioxide (21.0-32.0) mmol/L BUN (7.0-18.0) mg/dL Creatinine (0.8-1.3) mg/dL Est Cr Clr Drug Dosing Estimated GFR (MDRD) ml/min Glucose (74-106) mg/dL Calcium (8.5-10.1) mg/dL Total Bilirubin (0.2-1.0) mg/dL AST (15-37) IU/L ALT (14-63) IU/L Alkaline Phosphatase (46-116) U/L Troponin I (0.000-0.056) ng/mL Total Protein (6.4-8.2) g/dL Albumin (3.4-5.0) g/dL Globulin (2.0-3.5) g/dL Albumin/Globulin Ratio (1.3-2.8) Urine Color Urine Appearance Urine pH (5.0-8.0) Ur Specific [place] (1.001-1.035) Urine Protein (NEGATIVE) mg/dL Urine Glucose (UA) (NEGATIVE) mg/dL Urine Ketones (NEGATIVE) mg/dL Urine Occult Blood (NEGATIVE) Urine Nitrite (NEGATIVE) Urine Bilirubin (NEGATIVE) Urine Ictotest Urine Urobilinogen (<2.0) EU/dL Ur Leukocyte Esterase (NEGATIVE) Urine RBC (0-2/HPF) Urine WBC (0-5/HPF) Ur Epithelial Cells (NONE-FEW) Urine Bacteria (NEGATIVE) Hyaline Casts (0-2/LPF) H. pylori IgG Antibody NEGATIVE (NEG) Blood Type O POSITIVE Antibody Screen NEGATIVE Crossmatch See Detail 03/07/18 03/07/18 Range/Units 19:40 21:45 WBC (4.0-11.0) K/uL RBC (4.50-5.90) M/uL Hgb (13.0-17.0) g/dL Hct (38.0-50.0) % MCV (80.0-98.0) fL MCH (27.0-32.0) pg MCHC (31.0-37.0) g/dL RDW Std Deviation (28.0-62.0) fl RDW Coeff of Ellyn (11.0-15.0) % Plt Count (150-400) K/uL MPV (7.40-12.00) fL Neut % (Auto) (48.0-80.0) % Lymph % (Auto) (16.0-40.0) % Dougherty % (Auto) (0.0-15.0) % Eos % (Auto) (0.0-7.0) % Baso % (Auto) (0.0-1.5) % Neut # (Auto) (1.4-5.7) K/uL Lymph # (Auto) (0.6-2.4) K/uL Dougherty # (Auto) (0.0-0.8) K/uL Eos # (Auto) (0.0-0.7) K/uL Baso # (Auto) (0.0-0.1) K/uL Nucleated RBC % /100WBC Nucleated RBCs # K/uL INR Lactate 1.5 (0.20-2.00) mmol/L Sodium (136-148) mmol/L Potassium (3.5-5.1) mmol/L Chloride (98-107) mmol/L Carbon Dioxide (21.0-32.0) mmol/L BUN (7.0-18.0) mg/dL Creatinine (0.8-1.3) mg/dL Est Cr Clr Drug Dosing Estimated GFR (MDRD) ml/min Glucose (74-106) mg/dL Calcium (8.5-10.1) mg/dL Total Bilirubin (0.2-1.0) mg/dL AST (15-37) IU/L ALT (14-63) IU/L Alkaline Phosphatase (46-116) U/L Troponin I (0.000-0.056) ng/mL Total Protein (6.4-8.2) g/dL Albumin (3.4-5.0) g/dL Globulin (2.0-3.5) g/dL Albumin/Globulin Ratio (1.3-2.8) Urine Color YELLOW Urine Appearance HAZY Urine pH 5.5 (5.0-8.0) Ur Specific [place] 1.020 (1.001-1.035) Urine Protein NEGATIVE (NEGATIVE) mg/dL Urine Glucose (UA) NEGATIVE (NEGATIVE) mg/dL Urine Ketones TRACE H (NEGATIVE) mg/dL Urine Occult Blood NEGATIVE (NEGATIVE) Urine Nitrite NEGATIVE (NEGATIVE) Urine Bilirubin SMALL H (NEGATIVE) Urine Ictotest NEGATIVE Urine Urobilinogen 0.2 (<2.0) EU/dL Ur Leukocyte Esterase NEGATIVE (NEGATIVE) Urine RBC 0-1 (0-2/HPF) Urine WBC 0-2 (0-5/HPF) Ur Epithelial Cells RARE (NONE-FEW) Urine Bacteria FEW (NEGATIVE) Hyaline Casts 0-2 (0-2/LPF) H. pylori IgG Antibody (NEG) Blood Type Antibody Screen Crossmatch Result Diagrams: 03/07/18 17:26 03/07/18 17:26 Consult PN Assessment/Plan Procedures: Procedures ASSAY OF CK (CPK) (03/07/17) ASSAY OF LACTIC ACID (01/29/16) ASSAY OF MAGNESIUM (03/07/17) ASSAY OF TROPONIN QUANT (03/07/17) CHEST X-RAY 1 VIEW FRONTAL (03/07/17) CHEST X-RAY 2VW FRONTAL&LATL (01/29/16) COMPLETE CBC AUTOMATED (07/22/16) COMPLETE CBC W/AUTO DIFF WBC (03/07/17) COMPREHEN METABOLIC PANEL (03/07/17) CREATINE MB FRACTION (03/07/17) CT ABDOMEN W/DYE (02/01/16) CT HEAD/BRAIN W/O DYE (03/07/17) CT THORAX W/DYE (02/01/16) CULTURE OTHR SPECIMN AEROBIC (07/22/16) CULTURE SCREEN ONLY (12/10/15) ELECTROCARDIOGRAM TRACING (03/07/17) EMERGENCY DEPT VISIT (03/07/17) EMERGENCY DEPT VISIT (12/10/15) EVALUATE PT USE OF INHALER (01/29/16) HETEROPHILE ANTIBODY SCREEN (12/10/15) INFLUENZA ASSAY W/OPTIC (01/29/16) LIPID PANEL (10/27/15) METABOLIC PANEL TOTAL CA (07/22/16) MRI LUMBAR SPINE W/O DYE (05/23/16) OFFICE/OUTPATIENT VISIT EST (02/04/16) OFFICE/OUTPATIENT VISIT EST (10/27/14) OFFICE/OUTPATIENT VISIT NEW (05/02/15) PPSV23 VACC 2 YRS+ SUBQ/IM (10/27/14) PROTHROMBIN TIME (07/22/16) ROUTINE VENIPUNCTURE (03/07/17) STREP A AG IA (12/10/15) THER/PROPH/DIAG INJ IV PUSH (01/29/16) THROMBOPLASTIN TIME PARTIAL (07/22/16) URINALYSIS AUTO W/SCOPE (01/29/16) X-RAY EXAM OF HIP (05/02/15) (1) Hypotension SNOMED Code(s): 26826257 Code(s): I95.9 - HYPOTENSION, UNSPECIFIED Current Visit: Yes Qualifiers: Hypotension type: unspecified hypotension type Qualified Code(s): I95.9 - Hypotension, unspecified (2) Occult blood positive stool SNOMED Code(s): 88330181, 636672783 Code(s): R19.5 - OTHER FECAL ABNORMALITIES Current Visit: Yes (3) Syncope SNOMED Code(s): 675547474 Code(s): R55 - SYNCOPE AND COLLAPSE Current Visit: Yes Qualifiers: Syncope type: unspecified Qualified Code(s): R55 - Syncope and collapse Problem List Initiated/Reviewed/Updated: Yes Plan: The patient has signs of a possible GI bleed. His H pylori test is negative. His last colonoscopy revealed pancolonic diverticulosis and a <1cm rectal polyp in September of 2012. He has never had an EGD. We discussed a possible EGD tomorrow. I explained the procedure and while discussing the risks the patient refused to have the procedure done. He states that he wants to discuss the procedure tomorrow. Treat with ongoing resuscitation, IV PPI treatment, and NPO after midnight. I will review his morning labs and discuss a diagnostic EGD again with him tomorrow
[2018-03-08] MEDS: Piperacillin/Tazobactam 3.375 GM in Sodium Chloride 0.9% 50 ML IV SCH ×2 (00:44→08:00)
--- NOTE | 2018-03-08 00:44 | PCM.HP ---
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 He was outside and was not feeling well and tried to go inside the house and fainted. He was brought to hospital and he was found to be hypotensive with BP: 66/33, Hr. 44 Patient denies any fever , chills , chest pain , abdominal pain ,. He had 2 loose dark brown bowel movements today that tested positive for occult blood . His hemoglobin in Er was 9 and his platelets were in 600. Onset of Symptoms: Reports: Today, Sudden Duration of Symptoms: Reports: Minutes: denies Pain Score (Numeric/FACES): 0 - Related Data Allergies/Adverse Reactions: Allergies Allergy/AdvReac Type Severity Reaction Status Date / Time Sulfa (Sulfonamide Allergy Mild Rash Verified 03/07/17 16:42 Antibiotics) Home Medications: Home Meds Gabapentin [Neurontin] 300 mg PO BID 12/10/15 [History] Hydrochlorothiazide 12.5 mg PO DAILY 12/10/15 [History] Lisinopril 10 mg PO DAILY 03/07/17 [History] Past Medical History HEENT History: Reports: None Cardiovascular History: Reports: Hypertension Other Cardiovascular History: "low heart rate" Respiratory History: Reports: None Gastrointestinal History: Reports: None, Other (See Below) Other Gastrointestinal History: heartburn Genitourinary History: Reports: Prostate Disorder Musculoskeletal History: Reports: Arthritis, Other (See Below) Other Musculoskeletal History: Weakness to one side, uses cane Neurological History: Reports: CVA (He reports that he had a 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 He states that his unilateral weakness has resolved.) Psychiatric History: Reports: None Endocrine/Metabolic History: Reports: None Hematologic History: Reports: Blood Transfusion(s) Immunologic History: Reports: None Oncologic (Cancer) History: Reports: None Dermatologic History: Reports: None - Infectious Disease History Infectious Disease History: Reports: Chicken Pox, Measles, Mumps - Past Surgical History GI Surgical History: Reports: Cholecystectomy Neurological Surgical History: Reports: Other (See Below) Musculoskeletal Surgical History: Reports: Hip Replacement, Other (See Below) Social & Family History - Family History Family Medical History: Noncontributory Oncologic: Reports: Esophageal - Tobacco Use Smoking Status *Q: Current Every Day Smoker Years of Tobacco use: 40 Packs/Tins Daily: 0.5 Used Tobacco, but Quit: No Second Hand Smoke Exposure: No - Caffeine Use Caffeine Use: Reports: Coffee - Recreational Drug Use Recreational Drug Use: No H&P Review of Systems - Review of Systems: Review Of Systems: See Below General: Reports: Weakness, Fatigue. Denies: Fever, Chills, Malaise, Night Sweats, Diaphoresis, Decreased Appetite, Weight Loss, Weight Gain HEENT: Reports: No Symptoms Pulmonary: Reports: No Symptoms Cardiovascular: Reports: Lightheadedness, Syncope, Blood Pressure Problem Gastrointestinal: Reports: Diarrhea Genitourinary: Reports: No Symptoms Musculoskeletal: Reports: No Symptoms Skin: Reports: No Symptoms Psychiatric: Reports: No Symptoms Neurological: Reports: No Symptoms, Syncope Hematologic/Lymphatic: Reports: No Symptoms Immunologic: Reports: No Symptoms Exam - Exam Exam: See Below - Vital Signs Vital Signs: Last Vital Signs Temp 97 F 03/08/18 00:11 Pulse 63 03/08/18 00:11 Resp 13 03/08/18 00:11 BP 112/47 L 03/08/18 00:11 Pulse Ox 97 03/08/18 00:11 Weight: 136 lb 0.403 oz - Exam General: Alert, Oriented HEENT: Conjunctiva Clear Neck: Supple, Trachea Midline Lungs: Clear to Auscultation Cardiovascular: Regular Rate, Regular Rhythm, Normal S1, Normal S2 GI/Abdominal Exam: Normal Bowel Sounds, Soft, No Organomegaly, No Distention, Tender (LLQ) Back Exam: Normal Inspection Skin: Warm, Dry Neurological: Cranial Nerves Intact Neuro Extensive - Mental Status: Alert, Oriented x3 Neuro Extensive - Motor, Sensory, Reflexes: CN II-XII Intact Psychiatric: Alert, Normal Affect, Normal Mood - Patient Data Lab Results Last 24 hrs: Laboratory Results - last 24 hr 03/07/18 03/07/18 03/07/18 Range/Units 17:26 17:26 17:26 WBC 13.22 H (4.0-11.0) K/uL RBC 3.95 L (4.50-5.90) M/uL Hgb 9.0 L (13.0-17.0) g/dL Hct 29.1 L (38.0-50.0) % MCV 73.7 L (80.0-98.0) fL MCH 22.8 L (27.0-32.0) pg MCHC 30.9 L (31.0-37.0) g/dL RDW Std Deviation 42.1 (28.0-62.0) fl RDW Coeff of Ellyn 16 H (11.0-15.0) % Plt Count 607 H (150-400) K/uL MPV 9.50 (7.40-12.00) fL Neut % (Auto) 79.9 (48.0-80.0) % Lymph % (Auto) 13.2 L (16.0-40.0) % [place] % (Auto) 5.1 (0.0-15.0) % Eos % (Auto) 1.0 (0.0-7.0) % Baso % (Auto) 0.8 (0.0-1.5) % Neut # (Auto) 10.6 H (1.4-5.7) K/uL Lymph # (Auto) 1.7 (0.6-2.4) K/uL [place] # (Auto) 0.7 (0.0-0.8) K/uL Eos # (Auto) 0.1 (0.0-0.7) K/uL Baso # (Auto) 0.1 (0.0-0.1) K/uL Nucleated RBC % 0.0 /100WBC Nucleated RBCs # 0 K/uL INR 1.05 Lactate (0.20-2.00) mmol/L Sodium 142 (136-148) mmol/L Potassium 4.0 (3.5-5.1) mmol/L Chloride 106 (98-107) mmol/L Carbon Dioxide 20.6 L (21.0-32.0) mmol/L BUN 38 H (7.0-18.0) mg/dL Creatinine 1.6 H (0.8-1.3) mg/dL Est Cr Clr Drug Dosing TNP Estimated GFR (MDRD) 41.3 ml/min Glucose 152 H (74-106) mg/dL Calcium 9.5 (8.5-10.1) mg/dL Total Bilirubin 0.4 (0.2-1.0) mg/dL AST 21 (15-37) IU/L ALT 13 L (14-63) IU/L Alkaline Phosphatase 61 (46-116) U/L Troponin I < 0.050 (0.000-0.056) ng/mL Total Protein 6.5 (6.4-8.2) g/dL Albumin 3.8 (3.4-5.0) g/dL Globulin 2.7 (2.0-3.5) g/dL Albumin/Globulin Ratio 1.4 (1.3-2.8) Urine Color Urine Appearance Urine pH (5.0-8.0) Ur Specific [place] (1.001-1.035) Urine Protein (NEGATIVE) mg/dL Urine Glucose (UA) (NEGATIVE) mg/dL Urine Ketones (NEGATIVE) mg/dL Urine Occult Blood (NEGATIVE) Urine Nitrite (NEGATIVE) Urine Bilirubin (NEGATIVE) Urine Ictotest Urine Urobilinogen (<2.0) EU/dL Ur Leukocyte Esterase (NEGATIVE) Urine RBC (0-2/HPF) Urine WBC (0-5/HPF) Ur Epithelial Cells (NONE-FEW) Urine Bacteria (NEGATIVE) Hyaline Casts (0-2/LPF) H. pylori IgG Antibody (NEG) Blood Type Antibody Screen Crossmatch 03/07/18 03/07/18 03/07/18 Range/Units 17:26 17:26 17:26 WBC (4.0-11.0) K/uL RBC (4.50-5.90) M/uL Hgb (13.0-17.0) g/dL Hct (38.0-50.0) % MCV (80.0-98.0) fL MCH (27.0-32.0) pg MCHC (31.0-37.0) g/dL RDW Std Deviation (28.0-62.0) fl RDW Coeff of Ellyn (11.0-15.0) % Plt Count (150-400) K/uL MPV (7.40-12.00) fL Neut % (Auto) (48.0-80.0) % Lymph % (Auto) (16.0-40.0) % [place] % (Auto) (0.0-15.0) % Eos % (Auto) (0.0-7.0) % Baso % (Auto) (0.0-1.5) % Neut # (Auto) (1.4-5.7) K/uL Lymph # (Auto) (0.6-2.4) K/uL [place] # (Auto) (0.0-0.8) K/uL Eos # (Auto) (0.0-0.7) K/uL Baso # (Auto) (0.0-0.1) K/uL Nucleated RBC % /100WBC Nucleated RBCs # K/uL INR Lactate 2.8 H (0.20-2.00) mmol/L Sodium (136-148) mmol/L Potassium (3.5-5.1) mmol/L Chloride (98-107) mmol/L Carbon Dioxide (21.0-32.0) mmol/L BUN (7.0-18.0) mg/dL Creatinine (0.8-1.3) mg/dL Est Cr Clr Drug Dosing Estimated GFR (MDRD) ml/min Glucose (74-106) mg/dL Calcium (8.5-10.1) mg/dL Total Bilirubin (0.2-1.0) mg/dL AST (15-37) IU/L ALT (14-63) IU/L Alkaline Phosphatase (46-116) U/L Troponin I (0.000-0.056) ng/mL Total Protein (6.4-8.2) g/dL Albumin (3.4-5.0) g/dL Globulin (2.0-3.5) g/dL Albumin/Globulin Ratio (1.3-2.8) Urine Color Urine Appearance Urine pH (5.0-8.0) Ur Specific [place] (1.001-1.035) Urine Protein (NEGATIVE) mg/dL Urine Glucose (UA) (NEGATIVE) mg/dL Urine Ketones (NEGATIVE) mg/dL Urine Occult Blood (NEGATIVE) Urine Nitrite (NEGATIVE) Urine Bilirubin (NEGATIVE) Urine Ictotest Urine Urobilinogen (<2.0) EU/dL Ur Leukocyte Esterase (NEGATIVE) Urine RBC (0-2/HPF) Urine WBC (0-5/HPF) Ur Epithelial Cells (NONE-FEW) Urine Bacteria (NEGATIVE) Hyaline Casts (0-2/LPF) H. pylori IgG Antibody NEGATIVE (NEG) Blood Type O POSITIVE Antibody Screen NEGATIVE Crossmatch See Detail 03/07/18 03/07/18 Range/Units 19:40 21:45 WBC (4.0-11.0) K/uL RBC (4.50-5.90) M/uL Hgb (13.0-17.0) g/dL Hct (38.0-50.0) % MCV (80.0-98.0) fL MCH (27.0-32.0) pg MCHC (31.0-37.0) g/dL RDW Std Deviation (28.0-62.0) fl RDW Coeff of [place]lyn (11.0-15.0) % Plt Count (150-400) K/uL MPV (7.40-12.00) fL Neut % (Auto) (48.0-80.0) % Lymph % (Auto) (16.0-40.0) % [place] % (Auto) (0.0-15.0) % Eos % (Auto) (0.0-7.0) % Baso % (Auto) (0.0-1.5) % Neut # (Auto) (1.4-5.7) K/uL Lymph # (Auto) (0.6-2.4) K/uL [place] # (Auto) (0.0-0.8) K/uL Eos # (Auto) (0.0-0.7) K/uL Baso # (Auto) (0.0-0.1) K/uL Nucleated RBC % /100WBC Nucleated RBCs # K/uL INR Lactate 1.5 (0.20-2.00) mmol/L Sodium (136-148) mmol/L Potassium (3.5-5.1) mmol/L Chloride (98-107) mmol/L Carbon Dioxide (21.0-32.0) mmol/L BUN (7.0-18.0) mg/dL Creatinine (0.8-1.3) mg/dL Est Cr Clr Drug Dosing Estimated GFR (MDRD) ml/min Glucose (74-106) mg/dL Calcium (8.5-10.1) mg/dL Total Bilirubin (0.2-1.0) mg/dL AST (15-37) IU/L ALT (14-63) IU/L Alkaline Phosphatase (46-116) U/L Troponin I (0.000-0.056) ng/mL Total Protein (6.4-8.2) g/dL Albumin (3.4-5.0) g/dL Globulin (2.0-3.5) g/dL Albumin/Globulin Ratio (1.3-2.8) Urine Color YELLOW Urine Appearance HAZY Urine pH 5.5 (5.0-8.0) Ur Specific [place] 1.020 (1.001-1.035) Urine Protein NEGATIVE (NEGATIVE) mg/dL Urine Glucose (UA) NEGATIVE (NEGATIVE) mg/dL Urine Ketones TRACE H (NEGATIVE) mg/dL Urine Occult Blood NEGATIVE (NEGATIVE) Urine Nitrite NEGATIVE (NEGATIVE) Urine Bilirubin SMALL H (NEGATIVE) Urine Ictotest NEGATIVE Urine Urobilinogen 0.2 (<2.0) EU/dL Ur Leukocyte Esterase NEGATIVE (NEGATIVE) Urine RBC 0-1 (0-2/HPF) Urine WBC 0-2 (0-5/HPF) Ur Epithelial Cells RARE (NONE-FEW) Urine Bacteria FEW (NEGATIVE) Hyaline Casts 0-2 (0-2/LPF) H. pylori IgG Antibody (NEG) Blood Type Antibody Screen Crossmatch Result Diagrams: 03/07/18 17:26 03/07/18 17:26 EKG INTERPRETATION EKG Date: 03/07/18 - Problem List (1) Hypotension SNOMED Code(s): 97205512 ICD Code: I95.9 - HYPOTENSION, UNSPECIFIED Status: Acute Current Visit: Yes Qualifiers: Hypotension type: unspecified hypotension type Qualified Code(s): I95.9 - Hypotension, unspecified (2) Occult blood positive stool SNOMED Code(s): 40278175, 470876845 ICD Code: R19.5 - OTHER FECAL ABNORMALITIES Status: Acute Current Visit: Yes (3) Syncope SNOMED Code(s): 671110367 ICD Code: R55 - SYNCOPE AND COLLAPSE Status: Acute Current Visit: Yes Qualifiers: Syncope type: unspecified Qualified Code(s): R55 - Syncope and collapse (4) Bradycardia SNOMED Code(s): 75527826 ICD Code: R00.1 - BRADYCARDIA, UNSPECIFIED Status: Acute Current Visit: No Problem List Initiated/Reviewed/Updated: Yes Orders Last 24hrs: Active Orders 24 hr Category Date Time Status Admission Status [Patient Status] [ADT] Routine ADT 03/07/18 20:57 Active Cardiac Monitoring [RC] Q8H Care 03/07/18 17:19 Active Pulse Oximetry [RC] ASDIRECTED Care 03/07/18 17:19 Active Chest 1V Frontal [CR] Stat Exams 03/07/18 17:20 Taken Head wo Cont [CT] Stat Exams 03/07/18 17:20 Taken CBC WITH AUTO DIFF [HEME] Routine Lab 03/08/18 05:00 Ordered COMPREHENSIVE METABOLIC PN,CMP [CHEM] Routine Lab 03/08/18 05:00 Ordered CULTURE BLOOD [BC] Stat Lab 03/07/18 17:26 Received CULTURE BLOOD [BC] Stat Lab 03/07/18 18:15 Received CULTURE URINE [RM] Stat Lab 03/07/18 19:40 Ordered MAGNESIUM [CHEM] Routine Lab 03/08/18 05:00 Ordered PACKED CELLS [RED BLOOD CELLS LP] [BBK] Routine Lab 03/07/18 17:26 Results PHOSPHORUS [CHEM] Routine Lab 03/08/18 05:00 Ordered TYPE AND SCREEN [BBK] Stat Lab 03/07/18 17:26 Results UA W/MICROSCOPIC [URIN] Stat Lab 03/07/18 19:40 Ordered VANCOMYCIN TROUGH [CHEM] Timed Lab 03/12/18 00:01 Ordered Hydrocortisone Sod Succinate [Solu-CORTEF] Med 03/07/18 22:00 Active 100 mg IVPUSH Q8H Lactated Ringers [Ringers, Lactated] 1,000 ml Med 03/08/18 00:30 Active IV ASDIRECTED Pantoprazole [ProTONIX IV] Med 03/08/18 09:00 Active 40 mg IVPUSH DAILY Piperacillin/Tazobactam [Piperacil-Tazobact] 3.375 gm Med 03/08/18 00:30 Active Sodium Chloride 0.9% [Normal Saline] 50 ml IV Q8H Sodium Chloride 0.9% [Saline Flush] Med 03/07/18 17:19 Active 10 ml FLUSH ASDIRECTED PRN Sodium Chloride 0.9% [Saline Flush] Med 03/07/18 17:19 Active 2.5 ml FLUSH ASDIRECTED PRN Vancomycin Pharmacy to Dose [Pharmacy to Dose - Med 03/08/18 00:30 Pending Vancomycin] 1 dose .XX ASDIRECTED Vancomycin [Vancocin] 1 gm Med 03/08/18 01:00 Active Sodium Chloride 0.9% [Normal Saline] 250 ml IV Q24H Blood Culture x2 Reflex Set [OM.PC] Stat Oth 03/07/18 17:49 Ordered Saline Lock Insert [OM.PC] Stat Oth 03/07/18 17:19 Ordered Medication Orders Hydrocortisone Sodium Succinate (Solu-Cortef) 100 mg IVPUSH Q8H WINNIE Last Admin: 03/07/18 22:43 Dose: 100 mg Lactated Ringer's (Ringers, Lactated) 1,000 mls @ 125 mls/hr IV ASDIRECTED WINNIE Piperacillin Sod/Tazobactam (Sod 3.375 gm/ Sodium Chloride) 50 mls @ 100 mls/ hr IV Q8H WINNIE Vancomycin HCl 1 gm/ Sodium (Chloride) 250 mls @ 166 mls/hr IV Q24H WINNIE Pantoprazole Sodium (Protonix Iv) 40 mg IVPUSH DAILY WINNIE Sodium Chloride (Saline Flush) 10 ml FLUSH ASDIRECTED PRN PRN Reason: Keep Vein Open Sodium Chloride (Saline Flush) 2.5 ml FLUSH ASDIRECTED PRN PRN Reason: Keep Vein Open Vancomycin HCl (Pharmacy To Dose - Vancomycin) 1 dose .XX ASDIRECTED WINNIE Assessment/Plan Comment:: assessment and plan: 1) syncope : will admit patient to ICU , will f/up cardiac enzymes 3 sets q 6h , will order lipid profile , hemoglobin A1c , iv fluids, carotid Doppler , cardiac echo. 2)hypotension: will give patient iv fluids and will start patient on hydrocortisone 100 mg iv q 8 h 3) anemia due to occult blood loss: will start patient on protonix drip , patient was started on blood transfussion in Er , to be transfused 2 units of prbc, NPO after midnight , surgery consult for EGD tomorrow am 4) left lower abdominal pain : will start patient on iv zosyn and if persistent will consider a CT abdomen 5) dvt prof : scd 6) diarrhea: stool for c diff , stool culture , iv hydration
[2018-03-08] MEDS: Hydrocortisone Sodium Succinate 100 MG/2 ML SDV IVPUSH SCH (05:52)
[2018-03-08] MEDS ORDERED: Vancomycin 1,000 MG SDV PO SCH (08:44)
[2018-03-08] MEDS ORDERED: Pantoprazole 40 MG Vial IVPUSH SCH (09:00)
[2018-03-08] MEDS: Lactated Ringers 1,000 ML IV SCH ×2 (09:34→19:07)
--- NOTE | 2018-03-08 10:01 | PCM.SN ---
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 treatment plan discussed with resident, Dr. Knox. Continue iv fluids , d/c PPI , d/c zosyn.
[2018-03-08] MEDS: Midodrine 5 MG Tab PO SCH ×2 (10:55→16:01)
[2018-03-08] MEDS: Vancomycin 1,000 MG SDV PO SCH ×2 (11:07→17:08)
--- NOTE | 2018-03-08 11:19 | PCM.PN ---
<Oli Knox - Last Filed: 03/08/18 11:19> - General Info Date of Service: 03/08/18 Admission Dx/Problem (Free Text): Admission Diagnosis/Problem Admission Diagnosis/Problem Syncope Subjective Update: Patient is doing well. He doesn't report any acute symptoms at this time. He does have an appetite and wants to eat. Nursing did get him up to walk around the room this morning and he denied any lightheadedness or dizziness. He continues to have low blood pressure and again, is asymptomatic. Functional Status: Reports: Pain Controlled, Tolerating Diet, Ambulating, Urinating - Review of Systems General: Reports: No Symptoms HEENT: Reports: No Symptoms Pulmonary: Reports: No Symptoms Cardiovascular: Reports: No Symptoms Gastrointestinal: Reports: No Symptoms Genitourinary: Reports: No Symptoms Musculoskeletal: Reports: No Symptoms Skin: Reports: No Symptoms Neurological: Reports: No Symptoms Psychiatric: Reports: No Symptoms - Patient Data Vitals - Most Recent: Last Vital Signs Temp 96.8 F 03/08/18 11:00 Pulse 56 L 03/08/18 07:00 Resp 18 03/08/18 11:00 BP 80/63 L 03/08/18 11:00 Pulse Ox 96 03/08/18 11:00 Orthostatic Blood Pressure [ 114/63 Standing] Orthostatic Blood Pressure [ 104/63 Sitting] Orthostatic Blood Pressure [ 89/62 Supine] Weight - Most Recent: 138 lb 3.677 oz I&O - Last 24 Hours: Intake & Output 03/07/18 03/08/18 03/08/18 22:59 06:59 14:59 Intake Total 874 50 Balance 874 50 Lab Results Last 24 Hours: Laboratory Results - last 24 hr 03/07/18 03/07/18 03/07/18 Range/Units 17:26 17:26 17:26 WBC 13.22 H (4.0-11.0) K/uL RBC 3.95 L (4.50-5.90) M/uL Hgb 9.0 L (13.0-17.0) g/dL Hct 29.1 L (38.0-50.0) % MCV 73.7 L (80.0-98.0) fL MCH 22.8 L (27.0-32.0) pg MCHC 30.9 L (31.0-37.0) g/dL RDW Std Deviation 42.1 (28.0-62.0) fl RDW Coeff of Ellyn 16 H (11.0-15.0) % Plt Count 607 H (150-400) K/uL MPV 9.50 (7.40-12.00) fL Neut % (Auto) 79.9 (48.0-80.0) % Lymph % (Auto) 13.2 L (16.0-40.0) % [place] % (Auto) 5.1 (0.0-15.0) % Eos % (Auto) 1.0 (0.0-7.0) % Baso % (Auto) 0.8 (0.0-1.5) % Neut # (Auto) 10.6 H (1.4-5.7) K/uL Lymph # (Auto) 1.7 (0.6-2.4) K/uL [place] # (Auto) 0.7 (0.0-0.8) K/uL Eos # (Auto) 0.1 (0.0-0.7) K/uL Baso # (Auto) 0.1 (0.0-0.1) K/uL Nucleated RBC % 0.0 /100WBC Nucleated RBCs # 0 K/uL INR 1.05 Lactate (0.20-2.00) mmol/L Sodium 142 (136-148) mmol/L Potassium 4.0 (3.5-5.1) mmol/L Chloride 106 (98-107) mmol/L Carbon Dioxide 20.6 L (21.0-32.0) mmol/L BUN 38 H (7.0-18.0) mg/dL Creatinine 1.6 H (0.8-1.3) mg/dL Est Cr Clr Drug Dosing TNP Estimated GFR (MDRD) 41.3 ml/min Glucose 152 H (74-106) mg/dL Calcium 9.5 (8.5-10.1) mg/dL Phosphorus (2.6-4.7) mg/dL Magnesium (1.5-2.0) mg/dL Total Bilirubin 0.4 (0.2-1.0) mg/dL AST 21 (15-37) IU/L ALT 13 L (14-63) IU/L Alkaline Phosphatase 61 (46-116) U/L Troponin I < 0.050 (0.000-0.056) ng/mL Total Protein 6.5 (6.4-8.2) g/dL Albumin 3.8 (3.4-5.0) g/dL Globulin 2.7 (2.0-3.5) g/dL Albumin/Globulin Ratio 1.4 (1.3-2.8) Urine Color Urine Appearance Urine pH (5.0-8.0) Ur Specific [place] (1.001-1.035) Urine Protein (NEGATIVE) mg/dL Urine Glucose (UA) (NEGATIVE) mg/dL Urine Ketones (NEGATIVE) mg/dL Urine Occult Blood (NEGATIVE) Urine Nitrite (NEGATIVE) Urine Bilirubin (NEGATIVE) Urine Ictotest Urine Urobilinogen (<2.0) EU/dL Ur Leukocyte Esterase (NEGATIVE) Urine RBC (0-2/HPF) Urine WBC (0-5/HPF) Ur Epithelial Cells (NONE-FEW) Urine Bacteria (NEGATIVE) Hyaline Casts (0-2/LPF) H. pylori IgG Antibody (NEG) Blood Type Antibody Screen Crossmatch 03/07/18 03/07/18 03/07/18 Range/Units 17:26 17:26 17:26 WBC (4.0-11.0) K/uL RBC (4.50-5.90) M/uL Hgb (13.0-17.0) g/dL Hct (38.0-50.0) % MCV (80.0-98.0) fL MCH (27.0-32.0) pg MCHC (31.0-37.0) g/dL RDW Std Deviation (28.0-62.0) fl RDW Coeff of Ellyn (11.0-15.0) % Plt Count (150-400) K/uL MPV (7.40-12.00) fL Neut % (Auto) (48.0-80.0) % Lymph % (Auto) (16.0-40.0) % [place] % (Auto) (0.0-15.0) % Eos % (Auto) (0.0-7.0) % Baso % (Auto) (0.0-1.5) % Neut # (Auto) (1.4-5.7) K/uL Lymph # (Auto) (0.6-2.4) K/uL [place] # (Auto) (0.0-0.8) K/uL Eos # (Auto) (0.0-0.7) K/uL Baso # (Auto) (0.0-0.1) K/uL Nucleated RBC % /100WBC Nucleated RBCs # K/uL INR Lactate 2.8 H (0.20-2.00) mmol/L Sodium (136-148) mmol/L Potassium (3.5-5.1) mmol/L Chloride (98-107) mmol/L Carbon Dioxide (21.0-32.0) mmol/L BUN (7.0-18.0) mg/dL Creatinine (0.8-1.3) mg/dL Est Cr Clr Drug Dosing Estimated GFR (MDRD) ml/min Glucose (74-106) mg/dL Calcium (8.5-10.1) mg/dL Phosphorus (2.6-4.7) mg/dL Magnesium (1.5-2.0) mg/dL Total Bilirubin (0.2-1.0) mg/dL AST (15-37) IU/L ALT (14-63) IU/L Alkaline Phosphatase (46-116) U/L Troponin I (0.000-0.056) ng/mL Total Protein (6.4-8.2) g/dL Albumin (3.4-5.0) g/dL Globulin (2.0-3.5) g/dL Albumin/Globulin Ratio (1.3-2.8) Urine Color Urine Appearance Urine pH (5.0-8.0) Ur Specific [place] (1.001-1.035) Urine Protein (NEGATIVE) mg/dL Urine Glucose (UA) (NEGATIVE) mg/dL Urine Ketones (NEGATIVE) mg/dL Urine Occult Blood (NEGATIVE) Urine Nitrite (NEGATIVE) Urine Bilirubin (NEGATIVE) Urine Ictotest Urine Urobilinogen (<2.0) EU/dL Ur Leukocyte Esterase (NEGATIVE) Urine RBC (0-2/HPF) Urine WBC (0-5/HPF) Ur Epithelial Cells (NONE-FEW) Urine Bacteria (NEGATIVE) Hyaline Casts (0-2/LPF) H. pylori IgG Antibody NEGATIVE (NEG) Blood Type O POSITIVE Antibody Screen NEGATIVE Crossmatch See Detail 03/07/18 03/07/18 03/08/18 Range/Units 19:40 21:45 05:37 WBC 19.08 H (4.0-11.0) K/uL RBC 4.68 (4.50-5.90) M/uL Hgb 11.3 L (13.0-17.0) g/dL Hct 35.7 L (38.0-50.0) % MCV 76.3 L (80.0-98.0) fL MCH 24.1 L (27.0-32.0) pg MCHC 31.7 (31.0-37.0) g/dL RDW Std Deviation 43.4 (28.0-62.0) fl RDW Coeff of Ellyn 16 H (11.0-15.0) % Plt Count 455 H (150-400) K/uL MPV 10.40 (7.40-12.00) fL Neut % (Auto) 94.0 H (48.0-80.0) % Lymph % (Auto) 3.5 L (16.0-40.0) % [place] % (Auto) 2.3 (0.0-15.0) % Eos % (Auto) 0.1 (0.0-7.0) % Baso % (Auto) 0.1 (0.0-1.5) % Neut # (Auto) 18.0 H (1.4-5.7) K/uL Lymph # (Auto) 0.7 (0.6-2.4) K/uL [place] # (Auto) 0.4 (0.0-0.8) K/uL Eos # (Auto) 0.0 (0.0-0.7) K/uL Baso # (Auto) 0.0 (0.0-0.1) K/uL Nucleated RBC % /100WBC Nucleated RBCs # K/uL INR Lactate 1.5 (0.20-2.00) mmol/L Sodium (136-148) mmol/L Potassium (3.5-5.1) mmol/L Chloride (98-107) mmol/L Carbon Dioxide (21.0-32.0) mmol/L BUN (7.0-18.0) mg/dL Creatinine (0.8-1.3) mg/dL Est Cr Clr Drug Dosing Estimated GFR (MDRD) ml/min Glucose (74-106) mg/dL Calcium (8.5-10.1) mg/dL Phosphorus (2.6-4.7) mg/dL Magnesium (1.5-2.0) mg/dL Total Bilirubin (0.2-1.0) mg/dL AST (15-37) IU/L ALT (14-63) IU/L Alkaline Phosphatase (46-116) U/L Troponin I (0.000-0.056) ng/mL Total Protein (6.4-8.2) g/dL Albumin (3.4-5.0) g/dL Globulin (2.0-3.5) g/dL Albumin/Globulin Ratio (1.3-2.8) Urine Color YELLOW Urine Appearance HAZY Urine pH 5.5 (5.0-8.0) Ur Specific [place] 1.020 (1.001-1.035) Urine Protein NEGATIVE (NEGATIVE) mg/dL Urine Glucose (UA) NEGATIVE (NEGATIVE) mg/dL Urine Ketones TRACE H (NEGATIVE) mg/dL Urine Occult Blood NEGATIVE (NEGATIVE) Urine Nitrite NEGATIVE (NEGATIVE) Urine Bilirubin SMALL H (NEGATIVE) Urine Ictotest NEGATIVE Urine Urobilinogen 0.2 (<2.0) EU/dL Ur Leukocyte Esterase NEGATIVE (NEGATIVE) Urine RBC 0-1 (0-2/HPF) Urine WBC 0-2 (0-5/HPF) Ur Epithelial Cells RARE (NONE-FEW) Urine Bacteria FEW (NEGATIVE) Hyaline Casts 0-2 (0-2/LPF) H. pylori IgG Antibody (NEG) Blood Type Antibody Screen Crossmatch 03/08/18 03/08/18 Range/Units 05:37 08:37 WBC (4.0-11.0) K/uL RBC (4.50-5.90) M/uL Hgb (13.0-17.0) g/dL Hct (38.0-50.0) % MCV (80.0-98.0) fL MCH (27.0-32.0) pg MCHC (31.0-37.0) g/dL RDW Std Deviation (28.0-62.0) fl RDW Coeff of Ellyn (11.0-15.0) % Plt Count (150-400) K/uL MPV (7.40-12.00) fL Neut % (Auto) (48.0-80.0) % Lymph % (Auto) (16.0-40.0) % [place] % (Auto) (0.0-15.0) % Eos % (Auto) (0.0-7.0) % Baso % (Auto) (0.0-1.5) % Neut # (Auto) (1.4-5.7) K/uL Lymph # (Auto) (0.6-2.4) K/uL [place] # (Auto) (0.0-0.8) K/uL Eos # (Auto) (0.0-0.7) K/uL Baso # (Auto) (0.0-0.1) K/uL Nucleated RBC % /100WBC Nucleated RBCs # K/uL INR Lactate (0.20-2.00) mmol/L Sodium 142 (136-148) mmol/L Potassium 4.7 (3.5-5.1) mmol/L Chloride 110 H (98-107) mmol/L Carbon Dioxide 20.9 L (21.0-32.0) mmol/L BUN 37 H (7.0-18.0) mg/dL Creatinine 1.6 H (0.8-1.3) mg/dL Est Cr Clr Drug Dosing 29.93 Estimated GFR (MDRD) 41.3 ml/min Glucose 117 H (74-106) mg/dL Calcium 8.8 (8.5-10.1) mg/dL Phosphorus 4.5 (2.6-4.7) mg/dL Magnesium 1.9 (1.5-2.0) mg/dL Total Bilirubin 1.1 H (0.2-1.0) mg/dL AST 32 (15-37) IU/L ALT 29 (14-63) IU/L Alkaline Phosphatase 58 (46-116) U/L Troponin I < 0.050 (0.000-0.056) ng/mL Total Protein 6.3 L (6.4-8.2) g/dL Albumin 3.3 L (3.4-5.0) g/dL Globulin 3.0 (2.0-3.5) g/dL Albumin/Globulin Ratio 1.1 L (1.3-2.8) Urine Color Urine Appearance Urine pH (5.0-8.0) Ur Specific [place] (1.001-1.035) Urine Protein (NEGATIVE) mg/dL Urine Glucose (UA) (NEGATIVE) mg/dL Urine Ketones (NEGATIVE) mg/dL Urine Occult Blood (NEGATIVE) Urine Nitrite (NEGATIVE) Urine Bilirubin (NEGATIVE) Urine Ictotest Urine Urobilinogen (<2.0) EU/dL Ur Leukocyte Esterase (NEGATIVE) Urine RBC (0-2/HPF) Urine WBC (0-5/HPF) Ur Epithelial Cells (NONE-FEW) Urine Bacteria (NEGATIVE) Hyaline Casts (0-2/LPF) H. pylori IgG Antibody (NEG) Blood Type Antibody Screen Crossmatch Kevin Results Last 24 Hours: Microbiology 03/08/18 05:30 Clostridium difficile Toxin A & B - Final Stool / Feces Positive C. Diff Antigen 03/08/18 05:30 Campylobacter Antigen Assay - Final Stool / Feces NEGATIVE [facility] Med Orders - Current: Current Medications Lactated Ringer's (Ringers, Lactated) 1,000 mls @ 125 mls/hr IV ASDIRECTED [facility] Last Admin: 03/08/18 09:34 Dose: 125 mls/hr Metronidazole 500 mg/ Premix 100 mls @ 100 mls/hr IV TID [facility] Midodrine (Midodrine) 10 mg PO TIDAC [facility] Last Admin: 03/08/18 10:55 Dose: 10 mg Sodium Chloride (Saline Flush) 10 ml FLUSH ASDIRECTED PRN PRN Reason: Keep Vein Open Sodium Chloride (Saline Flush) 2.5 ml FLUSH ASDIRECTED PRN PRN Reason: Keep Vein Open Vancomycin HCl (Vancomycin) 500 mg PO QID [facility] Last Admin: 03/08/18 11:07 Dose: 500 mg Discontinued Medications Hydrocortisone Sodium Succinate (Solu-Cortef) 100 mg IVPUSH Q8H [facility] Last Admin: 03/08/18 05:52 Dose: 100 mg Sodium Chloride (Normal Saline) 1,000 mls @ 999 mls/hr IV STAT ONE Stop: 03/07/18 18:29 Last Admin: 03/07/18 17:31 Dose: 999 mls/hr Sodium Chloride (Normal Saline) 1,000 mls @ 999 mls/hr IV STAT ONE Stop: 03/07/18 19:51 Last Admin: 03/07/18 18:52 Dose: 999 mls/hr Lactated Ringer's (Ringers, Lactated) 1,000 mls @ 999 mls/hr IV ONETIME ONE Stop: 03/07/18 22:56 Last Admin: 03/07/18 23:27 Dose: Not Given Piperacillin Sod/Tazobactam (Sod 3.375 gm/ Sodium Chloride) 50 mls @ 100 mls/ hr IV Q8H [facility] Last Admin: 03/08/18 08:00 Dose: 100 mls/hr Vancomycin HCl 1 gm/ Sodium (Chloride) 250 mls @ 166 mls/hr IV Q24H [facility] Last Admin: 03/08/18 01:52 Dose: 166 mls/hr Ondansetron HCl (Zofran) 4 mg IVPUSH ONETIME ONE Stop: 03/07/18 17:28 Last Admin: 03/07/18 17:28 Dose: 4 mg Pantoprazole Sodium (Protonix Iv) 80 mg IVPUSH .BOLUS ONE Stop: 03/07/18 18:13 Last Admin: 03/07/18 18:44 Dose: 80 mg Pantoprazole Sodium (Protonix Iv) 40 mg IVPUSH DAILY [facility] Last Admin: 03/08/18 08:39 Dose: 40 mg Vancomycin HCl (Pharmacy To Dose - Vancomycin) 1 dose .XX ASDIRECTED [facility] Vancomycin HCl (Vancomycin) 125 mg PO QID [facility] Last Admin: 03/08/18 09:10 Dose: Not Given - Exam General: Alert, Oriented, Cooperative, No Acute Distress Lungs: Clear to Auscultation, Normal Respiratory Effort Cardiovascular: Regular Rate, Regular Rhythm GI/Abdominal Exam: Normal Bowel Sounds, Soft, Non-Tender, No Organomegaly, No Distention, No Abnormal Bruit, No Mass, Pelvis Stable Extremities: Normal Inspection, Normal Range of Motion, Non-Tender, No Pedal Edema, Normal Capillary Refill Peripheral Pulses: 2+: Radial (L), Radial (R), Posterior Tibial (L), Posterior Tibial (R) Skin: Warm, Dry, Intact Neurological: No New Focal Deficit, Other (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 No other neurological deficits appreciated.) Psy/Mental Status: Alert, Normal Affect, Normal Mood - Problem List & Annotations (1) C. difficile colitis SNOMED Code(s): 503411061 Code(s): A04.72 - ENTEROCOLITIS D/T CLOSTRIDIUM DIFFICILE, NOT SPCF RECUR Status: Acute Current Visit: Yes (2) Hypotension SNOMED Code(s): 45886359 Code(s): I95.9 - HYPOTENSION, UNSPECIFIED Status: Acute Current Visit: Yes Qualifiers: Hypotension type: unspecified hypotension type Qualified Code(s): I95.9 - Hypotension, unspecified (3) Occult blood positive stool SNOMED Code(s): 11712524, 921651537 Code(s): R19.5 - OTHER FECAL ABNORMALITIES Status: Acute Current Visit: Yes (4) Syncope SNOMED Code(s): 871754842 Code(s): R55 - SYNCOPE AND COLLAPSE Status: Acute Current Visit: Yes Qualifiers: Syncope type: unspecified Qualified Code(s): R55 - Syncope and collapse (5) Bradycardia SNOMED Code(s): 32420223 Code(s): R00.1 - BRADYCARDIA, UNSPECIFIED Status: Acute Current Visit: No - Problem List Review Problem List Initiated/Reviewed/Updated: Yes - My Orders Last 24 Hours: My Active Orders 03/08/18 11:12 Transfer Patient (Change bed) [ADT] Routine 03/08/18 11:30 Midodrine 10 mg PO TIDAC 03/08/18 12:00 Vancomycin 500 mg PO QID 03/08/18 14:00 metroNIDAZOLE/Normal Saline [Flagyl 500 MG in NS 100 ML] 500 mg Premix Bag 1 bag IV TID 03/08/18 14:17 TROPONIN I [CHEM] Q6H - Plan Plan:: 87-year-old male that is admitted with a witnessed syncopal episode. #1. Syncope: -Patient remains on telemetry. Telemetry shows first-degree AV block with a heart rate in the range of 50-90. Patient denies any chest pain. -Patient will need an echocardiogram but wants this done as outpatient. -Troponin 2 is negative. #2. Hypotension: -This could be the result of his C. difficile infection and subsequent diarrhea. All antihypertensive medications have been held. He is getting IV fluids. He is also been started on midodrine 10 mg 3 times a day. -IV hydrocortisone has been discontinued. -The patient is status post 1 unit of packed red blood cells. Hemoglobin this morning is 11.3. #3. C. difficile: -Stool cultures came back positive for C. difficile. Other stool cultures were negative. -Patient started on IV Flagyl 500 mg 3 times a day and by mouth vancomycin 500 mg 4 times a day. -CBC this morning showed an elevated white count of 19,000. This is likely secondary to the IV hydrocortisone that the patient was getting previously. This has been discontinued. Recheck CBC in the morning. -IV Protonix has been discontinued. DVT prophylaxis: SCDs. Disposition: 1-2 days pending improvement. <Dg Castellanos - Last Filed: 03/08/18 15:28> - Patient Data Vitals - Most Recent: Last Vital Signs Temp 96.8 F 03/08/18 11:00 Pulse 56 L 03/08/18 07:00 Resp 11 L 03/08/18 15:00 BP 96/49 L 03/08/18 15:00 Pulse Ox 94 L 03/08/18 15:00 Orthostatic Blood Pressure [ 114/63 Standing] Orthostatic Blood Pressure [ 104/63 Sitting] Orthostatic Blood Pressure [ 89/62 Supine] I&O - Last 24 Hours: Intake & Output 03/08/18 03/08/18 03/08/18 06:59 14:59 22:59 Intake Total 874 150 Balance 874 150 Lab Results Last 24 Hours: Laboratory Results - last 24 hr 03/07/18 03/07/18 03/07/18 Range/Units 17:26 17:26 17:26 WBC 13.22 H (4.0-11.0) K/uL RBC 3.95 L (4.50-5.90) M/uL Hgb 9.0 L (13.0-17.0) g/dL Hct 29.1 L (38.0-50.0) % MCV 73.7 L (80.0-98.0) fL MCH 22.8 L (27.0-32.0) pg MCHC 30.9 L (31.0-37.0) g/dL RDW Std Deviation 42.1 (28.0-62.0) fl RDW Coeff of Ellyn 16 H (11.0-15.0) % Plt Count 607 H (150-400) K/uL MPV 9.50 (7.40-12.00) fL Neut % (Auto) 79.9 (48.0-80.0) % Lymph % (Auto) 13.2 L (16.0-40.0) % [place] % (Auto) 5.1 (0.0-15.0) % Eos % (Auto) 1.0 (0.0-7.0) % Baso % (Auto) 0.8 (0.0-1.5) % Neut # (Auto) 10.6 H (1.4-5.7) K/uL Lymph # (Auto) 1.7 (0.6-2.4) K/uL [place] # (Auto) 0.7 (0.0-0.8) K/uL Eos # (Auto) 0.1 (0.0-0.7) K/uL Baso # (Auto) 0.1 (0.0-0.1) K/uL Nucleated RBC % 0.0 /100WBC Nucleated RBCs # 0 K/uL INR 1.05 Lactate (0.20-2.00) mmol/L Sodium 142 (136-148) mmol/L Potassium 4.0 (3.5-5.1) mmol/L Chloride 106 (98-107) mmol/L Carbon Dioxide 20.6 L (21.0-32.0) mmol/L BUN 38 H (7.0-18.0) mg/dL Creatinine 1.6 H (0.8-1.3) mg/dL Est Cr Clr Drug Dosing TNP Estimated GFR (MDRD) 41.3 ml/min Glucose 152 H (74-106) mg/dL Calcium 9.5 (8.5-10.1) mg/dL Phosphorus (2.6-4.7) mg/dL Magnesium (1.5-2.0) mg/dL Total Bilirubin 0.4 (0.2-1.0) mg/dL AST 21 (15-37) IU/L ALT 13 L (14-63) IU/L Alkaline Phosphatase 61 (46-116) U/L Troponin I < 0.050 (0.000-0.056) ng/mL Total Protein 6.5 (6.4-8.2) g/dL Albumin 3.8 (3.4-5.0) g/dL Globulin 2.7 (2.0-3.5) g/dL Albumin/Globulin Ratio 1.4 (1.3-2.8) Urine Color Urine Appearance Urine pH (5.0-8.0) Ur Specific [place] (1.001-1.035) Urine Protein (NEGATIVE) mg/dL Urine Glucose (UA) (NEGATIVE) mg/dL Urine Ketones (NEGATIVE) mg/dL Urine Occult Blood (NEGATIVE) Urine Nitrite (NEGATIVE) Urine Bilirubin (NEGATIVE) Urine Ictotest Urine Urobilinogen (<2.0) EU/dL Ur Leukocyte Esterase (NEGATIVE) Urine RBC (0-2/HPF) Urine WBC (0-5/HPF) Ur Epithelial Cells (NONE-FEW) Urine Bacteria (NEGATIVE) Hyaline Casts (0-2/LPF) H. pylori IgG Antibody (NEG) Blood Type Antibody Screen Crossmatch 03/07/18 03/07/18 03/07/18 Range/Units 17:26 17:26 17:26 WBC (4.0-11.0) K/uL RBC (4.50-5.90) M/uL Hgb (13.0-17.0) g/dL Hct (38.0-50.0) % MCV (80.0-98.0) fL MCH (27.0-32.0) pg MCHC (31.0-37.0) g/dL RDW Std Deviation (28.0-62.0) fl RDW Coeff of Ellyn (11.0-15.0) % Plt Count (150-400) K/uL MPV (7.40-12.00) fL Neut % (Auto) (48.0-80.0) % Lymph % (Auto) (16.0-40.0) % [place] % (Auto) (0.0-15.0) % Eos % (Auto) (0.0-7.0) % Baso % (Auto) (0.0-1.5) % Neut # (Auto) (1.4-5.7) K/uL Lymph # (Auto) (0.6-2.4) K/uL [place] # (Auto) (0.0-0.8) K/uL Eos # (Auto) (0.0-0.7) K/uL Baso # (Auto) (0.0-0.1) K/uL Nucleated RBC % /100WBC Nucleated RBCs # K/uL INR Lactate 2.8 H (0.20-2.00) mmol/L Sodium (136-148) mmol/L Potassium (3.5-5.1) mmol/L Chloride (98-107) mmol/L Carbon Dioxide (21.0-32.0) mmol/L BUN (7.0-18.0) mg/dL Creatinine (0.8-1.3) mg/dL Est Cr Clr Drug Dosing Estimated GFR (MDRD) ml/min Glucose (74-106) mg/dL Calcium (8.5-10.1) mg/dL Phosphorus (2.6-4.7) mg/dL Magnesium (1.5-2.0) mg/dL Total Bilirubin (0.2-1.0) mg/dL AST (15-37) IU/L ALT (14-63) IU/L Alkaline Phosphatase (46-116) U/L Troponin I (0.000-0.056) ng/mL Total Protein (6.4-8.2) g/dL Albumin (3.4-5.0) g/dL Globulin (2.0-3.5) g/dL Albumin/Globulin Ratio (1.3-2.8) Urine Color Urine Appearance Urine pH (5.0-8.0) Ur Specific [place] (1.001-1.035) Urine Protein (NEGATIVE) mg/dL Urine Glucose (UA) (NEGATIVE) mg/dL Urine Ketones (NEGATIVE) mg/dL Urine Occult Blood (NEGATIVE) Urine Nitrite (NEGATIVE) Urine Bilirubin (NEGATIVE) Urine Ictotest Urine Urobilinogen (<2.0) EU/dL Ur Leukocyte Esterase (NEGATIVE) Urine RBC (0-2/HPF) Urine WBC (0-5/HPF) Ur Epithelial Cells (NONE-FEW) Urine Bacteria (NEGATIVE) Hyaline Casts (0-2/LPF) H. pylori IgG Antibody NEGATIVE (NEG) Blood Type O POSITIVE Antibody Screen NEGATIVE Crossmatch See Detail 03/07/18 03/07/18 03/08/18 Range/Units 19:40 21:45 05:37 WBC 19.08 H (4.0-11.0) K/uL RBC 4.68 (4.50-5.90) M/uL Hgb 11.3 L (13.0-17.0) g/dL Hct 35.7 L (38.0-50.0) % MCV 76.3 L (80.0-98.0) fL MCH 24.1 L (27.0-32.0) pg MCHC 31.7 (31.0-37.0) g/dL RDW Std Deviation 43.4 (28.0-62.0) fl RDW Coeff of Ellyn 16 H (11.0-15.0) % Plt Count 455 H (150-400) K/uL MPV 10.40 (7.40-12.00) fL Neut % (Auto) 94.0 H (48.0-80.0) % Lymph % (Auto) 3.5 L (16.0-40.0) % [place] % (Auto) 2.3 (0.0-15.0) % Eos % (Auto) 0.1 (0.0-7.0) % Baso % (Auto) 0.1 (0.0-1.5) % Neut # (Auto) 18.0 H (1.4-5.7) K/uL Lymph # (Auto) 0.7 (0.6-2.4) K/uL [place] # (Auto) 0.4 (0.0-0.8) K/uL Eos # (Auto) 0.0 (0.0-0.7) K/uL Baso # (Auto) 0.0 (0.0-0.1) K/uL Nucleated RBC % /100WBC Nucleated RBCs # K/uL INR Lactate 1.5 (0.20-2.00) mmol/L Sodium (136-148) mmol/L Potassium (3.5-5.1) mmol/L Chloride (98-107) mmol/L Carbon Dioxide (21.0-32.0) mmol/L BUN (7.0-18.0) mg/dL Creatinine (0.8-1.3) mg/dL Est Cr Clr Drug Dosing Estimated GFR (MDRD) ml/min Glucose (74-106) mg/dL Calcium (8.5-10.1) mg/dL Phosphorus (2.6-4.7) mg/dL Magnesium (1.5-2.0) mg/dL Total Bilirubin (0.2-1.0) mg/dL AST (15-37) IU/L ALT (14-63) IU/L Alkaline Phosphatase (46-116) U/L Troponin I (0.000-0.056) ng/mL Total Protein (6.4-8.2) g/dL Albumin (3.4-5.0) g/dL Globulin (2.0-3.5) g/dL Albumin/Globulin Ratio (1.3-2.8) Urine Color YELLOW Urine Appearance HAZY Urine pH 5.5 (5.0-8.0) Ur Specific [place] 1.020 (1.001-1.035) Urine Protein NEGATIVE (NEGATIVE) mg/dL Urine Glucose (UA) NEGATIVE (NEGATIVE) mg/dL Urine Ketones TRACE H (NEGATIVE) mg/dL Urine Occult Blood NEGATIVE (NEGATIVE) Urine Nitrite NEGATIVE (NEGATIVE) Urine Bilirubin SMALL H (NEGATIVE) Urine Ictotest NEGATIVE Urine Urobilinogen 0.2 (<2.0) EU/dL Ur Leukocyte Esterase NEGATIVE (NEGATIVE) Urine RBC 0-1 (0-2/HPF) Urine WBC 0-2 (0-5/HPF) Ur Epithelial Cells RARE (NONE-FEW) Urine Bacteria FEW (NEGATIVE) Hyaline Casts 0-2 (0-2/LPF) H. pylori IgG Antibody (NEG) Blood Type Antibody Screen Crossmatch 03/08/18 03/08/18 03/08/18 Range/Units 05:37 08:37 14:12 WBC (4.0-11.0) K/uL RBC (4.50-5.90) M/uL Hgb (13.0-17.0) g/dL Hct (38.0-50.0) % MCV (80.0-98.0) fL MCH (27.0-32.0) pg MCHC (31.0-37.0) g/dL RDW Std Deviation (28.0-62.0) fl RDW Coeff of Ellyn (11.0-15.0) % Plt Count (150-400) K/uL MPV (7.40-12.00) fL Neut % (Auto) (48.0-80.0) % Lymph % (Auto) (16.0-40.0) % [place] % (Auto) (0.0-15.0) % Eos % (Auto) (0.0-7.0) % Baso % (Auto) (0.0-1.5) % Neut # (Auto) (1.4-5.7) K/uL Lymph # (Auto) (0.6-2.4) K/uL [place] # (Auto) (0.0-0.8) K/uL Eos # (Auto) (0.0-0.7) K/uL Baso # (Auto) (0.0-0.1) K/uL Nucleated RBC % /100WBC Nucleated RBCs # K/uL INR Lactate (0.20-2.00) mmol/L Sodium 142 (136-148) mmol/L Potassium 4.7 (3.5-5.1) mmol/L Chloride 110 H (98-107) mmol/L Carbon Dioxide 20.9 L (21.0-32.0) mmol/L BUN 37 H (7.0-18.0) mg/dL Creatinine 1.6 H (0.8-1.3) mg/dL Est Cr Clr Drug Dosing 29.93 Estimated GFR (MDRD) 41.3 ml/min Glucose 117 H (74-106) mg/dL Calcium 8.8 (8.5-10.1) mg/dL Phosphorus 4.5 (2.6-4.7) mg/dL Magnesium 1.9 (1.5-2.0) mg/dL Total Bilirubin 1.1 H (0.2-1.0) mg/dL AST 32 (15-37) IU/L ALT 29 (14-63) IU/L Alkaline Phosphatase 58 (46-116) U/L Troponin I < 0.050 < 0.050 (0.000-0.056) ng/mL Total Protein 6.3 L (6.4-8.2) g/dL Albumin 3.3 L (3.4-5.0) g/dL Globulin 3.0 (2.0-3.5) g/dL Albumin/Globulin Ratio 1.1 L (1.3-2.8) Urine Color Urine Appearance Urine pH (5.0-8.0) Ur Specific [place] (1.001-1.035) Urine Protein (NEGATIVE) mg/dL Urine Glucose (UA) (NEGATIVE) mg/dL Urine Ketones (NEGATIVE) mg/dL Urine Occult Blood (NEGATIVE) Urine Nitrite (NEGATIVE) Urine Bilirubin (NEGATIVE) Urine Ictotest Urine Urobilinogen (<2.0) EU/dL Ur Leukocyte Esterase (NEGATIVE) Urine RBC (0-2/HPF) Urine WBC (0-5/HPF) Ur Epithelial Cells (NONE-FEW) Urine Bacteria (NEGATIVE) Hyaline Casts (0-2/LPF) H. pylori IgG Antibody (NEG) Blood Type Antibody Screen Crossmatch Kevin Results Last 24 Hours: Microbiology 03/08/18 05:30 Clostridium difficile Toxin A & B - Final Stool / Feces Positive C. Diff Antigen 03/08/18 05:30 Campylobacter Antigen Assay - Final Stool / Feces NEGATIVE [facility] Med Orders - Current: Current Medications Lactated Ringer's (Ringers, Lactated) 1,000 mls @ 125 mls/hr IV ASDIRECTED [facility] Last Admin: 03/08/18 09:34 Dose: 125 mls/hr Metronidazole 500 mg/ Premix 100 mls @ 100 mls/hr IV TID [facility] Last Admin: 03/08/18 13:01 Dose: 100 mls/hr Midodrine (Midodrine) 10 mg PO TIDAC [facility] Last Admin: 03/08/18 10:55 Dose: 10 mg Sodium Chloride (Saline Flush) 10 ml FLUSH ASDIRECTED PRN PRN Reason: Keep Vein Open Sodium Chloride (Saline Flush) 2.5 ml FLUSH ASDIRECTED PRN PRN Reason: Keep Vein Open Vancomycin HCl (Vancomycin) 500 mg PO QID [facility] Last Admin: 03/08/18 11:07 Dose: 500 mg Discontinued Medications Hydrocortisone Sodium Succinate (Solu-Cortef) 100 mg IVPUSH Q8H [facility] Last Admin: 03/08/18 05:52 Dose: 100 mg Sodium Chloride (Normal Saline) 1,000 mls @ 999 mls/hr IV STAT ONE Stop: 03/07/18 18:29 Last Admin: 03/07/18 17:31 Dose: 999 mls/hr Sodium Chloride (Normal Saline) 1,000 mls @ 999 mls/hr IV STAT ONE Stop: 03/07/18 19:51 Last Admin: 03/07/18 18:52 Dose: 999 mls/hr Lactated Ringer's (Ringers, Lactated) 1,000 mls @ 999 mls/hr IV ONETIME ONE Stop: 03/07/18 22:56 Last Admin: 03/07/18 23:27 Dose: Not Given Piperacillin Sod/Tazobactam (Sod 3.375 gm/ Sodium Chloride) 50 mls @ 100 mls/ hr IV Q8H [facility] Last Admin: 03/08/18 08:00 Dose: 100 mls/hr Vancomycin HCl 1 gm/ Sodium (Chloride) 250 mls @ 166 mls/hr IV Q24H [facility] Last Admin: 03/08/18 01:52 Dose: 166 mls/hr Ondansetron HCl (Zofran) 4 mg IVPUSH ONETIME ONE Stop: 03/07/18 17:28 Last Admin: 03/07/18 17:28 Dose: 4 mg Pantoprazole Sodium (Protonix Iv) 80 mg IVPUSH .BOLUS ONE Stop: 03/07/18 18:13 Last Admin: 03/07/18 18:44 Dose: 80 mg Pantoprazole Sodium (Protonix Iv) 40 mg IVPUSH DAILY [facility] Last Admin: 03/08/18 08:39 Dose: 40 mg Vancomycin HCl (Pharmacy To Dose - Vancomycin) 1 dose .XX ASDIRECTED [facility] Vancomycin HCl (Vancomycin) 125 mg PO QID [facility] Last Admin: 03/08/18 09:10 Dose: Not Given - Problem List & Annotations (1) Hypotension SNOMED Code(s): 87806605 Code(s): I95.9 - HYPOTENSION, UNSPECIFIED Status: Acute Current Visit: Yes Qualifiers: Hypotension type: unspecified hypotension type Qualified Code(s): I95.9 - Hypotension, unspecified (2) Occult blood positive stool SNOMED Code(s): 58324144, 401532506 Code(s): R19.5 - OTHER FECAL ABNORMALITIES Status: Acute Current Visit: Yes (3) Syncope SNOMED Code(s): 880172120 Code(s): R55 - SYNCOPE AND COLLAPSE Status: Acute Current Visit: Yes Qualifiers: Syncope type: unspecified Qualified Code(s): R55 - Syncope and collapse (4) Bradycardia SNOMED Code(s): 72299425 Code(s): R00.1 - BRADYCARDIA, UNSPECIFIED Status: Acute Current Visit: No - My Orders Last 24 Hours: My Active Orders 03/08/18 00:30 Lactated Ringers [Ringers, Lactated] 1,000 ml IV ASDIRECTED 03/08/18 05:30 CDIFF TOX A+B [OP] Routine CULTURE STOOL + CAMPY+SHIGATOX [RM] Routine 03/08/18 12:10 Carotid Comp [US] Routine 03/08/18 Lunch BRAT Diet [DIET] - Plan Plan:: Patient seen and examined with resident . A/p discussed with resident. f/up eICU . Patient has fulminant/severe c diff - will start patient on Vancomycin 500 mg po q 6 h and metronidazole 500 mg IV q 8 h ( reference from uptodate) agree with assessment and plan
[2018-03-08] MEDS ORDERED: Vancomycin 1 GM AdvVial SCH (12:00)
[2018-03-08] MEDS: metroNIDAZOLE/Normal Saline 500 MG in Premix Bag 1 BAG IV SCH ×2 (13:01→21:29)
--- NOTE | 2018-03-08 15:24 | CR ---
EXAM DATE: 03/07/18 PATIENT'S AGE: 87 Patient: MILAN CARR Facility: [place], [place] Site . Site : 1932 Study: XRay Chest [id number]/22/2018 5:58:04 PM Ordering Physician: Tyrone Pratt Final Report: CHEST 1 VIEW AP INDICATION: Shortness of breath and chest pain. IMPRESSION: Normal heart size and vascular pattern. Lungs are clear. No pneumothorax or pleural abnormality. ECG Monitor leads projected over the patient. Dictated by Leo Carson MD @ Mar 07 2018 6:21PM (Electronic Signature) Report Signed by Proxy. REGGIE
--- NOTE | 2018-03-08 15:25 | CT ---
EXAM DATE: 03/07/18 PATIENT'S AGE: 87 Patient: MILAN CARR Facility: [place], [place] Site . Site : 1932 Study: CT Head [id number]/22/2018 6:02:09 PM Ordering Physician: Tyrone Pratt Final Report: INDICATION: AMS, pain. CT HEAD WITHOUT CONTRAST TECHNIQUE: Multiple axial CT images were performed through the head without intravenous contrast administration. COMPARISON: 03/07/[address] FINDINGS: No acute intracranial hemorrhage is identified. No extra-axial collections are evident and there is no mass effect or midline shift. There is mild diffuse age-related brain atrophy. Ventricular size and configuration are within normal limits for the patient`s age. Bedolla-white differentiation is within normal limits. There is stable mild patchy hypodensity in the periventricular white matter, a nonspecific finding which most likely reflects chronic small vessel ischemic change. An unchanged small chronic lacunar infarct is seen in the right thalamus. Osseous structures are within normal limits and no fractures are seen. Included portions of the paranasal sinuses and mastoid air cells are normally aerated. IMPRESSION: 1. No acute intracranial abnormality identified. 2. Age-related brain atrophy, white matter hypodensity consistent with chronic small vessel ischemic change, and small chronic right thalamic lacunar infarct. ALECIA MCDANIEL MD [employer] Dictated by Martin Mcdaniel MD @ 03/07/2018 6:26:48 PM Dictated by: Martin Mcdaniel MD @ 03/07/2018 18:27:08 (Electronic Signature) Report Signed by Proxy. REGGIE
[2018-03-08] MEDS ORDERED: Sodium Chloride 0.9% 1,000 ML IV ONE (15:57)
--- NOTE | 2018-03-08 16:47 | US ---
EXAMINATION: Carotid US with fisher scale and duplex imaging. HISTORY: Syncope FINDINGS: Ultrasound examination of bilateral cervical carotid arteries was performed using fisher scale and dupl ex imaging. Moderate scattered atheromatous changes within the carotid arteries bilaterally. Antegr nikki flow noted within the vertebrals. These are the peak velocities in cm per second (systole), right and left respectively, by a comma: CCA (common carotid artery) - 84, 78 ICA (internal carotid artery) - 75, 78 ECA (External carotid artery) - 160, 110 ICA/CCA systolic ratio Right - 1.2 Left - 1.2 IMPRESSION: 1. Moderate scattered atheromatous changes within the carotid arteries bilaterally. 2. There is however no elevated velocities identified to suggest greater than 50% stenosis.
[2018-03-08] MEDS ORDERED: Acetaminophen 325 MG Tab PO PRN (17:30)
[2018-03-08] MEDS ORDERED: Temazepam 15 MG Cap PO PRN (19:02)
[2018-03-09] MEDS: Vancomycin 1,000 MG SDV PO SCH ×4 (00:43→18:04)
[2018-03-09] MEDS ORDERED: Sodium Chloride 0.9% 500 ML IV ONE (01:13)
[2018-03-09] MEDS: Lactated Ringers 1,000 ML IV SCH ×3 (04:21→22:01)
[2018-03-09] MEDS: metroNIDAZOLE/Normal Saline 500 MG in Premix Bag 1 BAG IV SCH ×3 (05:42→22:02)
[2018-03-09] MEDS: Midodrine 5 MG Tab PO SCH ×3 (06:44→16:34)
--- NOTE | 2018-03-09 10:07 | PCM.PN ---
<Oli Knox - Last Filed: 03/09/18 10:07> - General Info Date of Service: 03/09/18 Admission Dx/Problem (Free Text): Admission Diagnosis/Problem Admission Diagnosis/Problem Syncope Subjective Update: Patient continues to do well. He has no acute concerns this morning. He did have an episode of hypotension and bradycardia last night. He was given a 500 mL bolus with his blood pressure improving. He is ambulating without any symptoms. 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 Patient is tolerating oral intake and voiding appropriately. He denies any chest pain or shortness of breath. Functional Status: Reports: Pain Controlled, Tolerating Diet, Ambulating, Urinating - Review of Systems General: Reports: No Symptoms HEENT: Reports: No Symptoms Pulmonary: Reports: No Symptoms Cardiovascular: Reports: No Symptoms Gastrointestinal: Reports: No Symptoms Genitourinary: Reports: No Symptoms Musculoskeletal: Reports: No Symptoms Skin: Reports: No Symptoms Neurological: Reports: No Symptoms Psychiatric: Reports: No Symptoms - Patient Data Vitals - Most Recent: Last Vital Signs Temp 97.3 F 03/09/18 08:00 Pulse 56 L 03/08/18 07:00 Resp 14 03/09/18 09:00 BP 94/44 L 03/09/18 09:00 Pulse Ox 97 03/09/18 09:00 Orthostatic Blood Pressure [ 114/63 Standing] Orthostatic Blood Pressure [ 104/63 Sitting] Orthostatic Blood Pressure [ 89/62 Supine] Weight - Most Recent: 149 lb 4.047 oz I&O - Last 24 Hours: Intake & Output 03/08/18 03/09/18 03/09/18 22:59 06:59 14:59 Intake Total 4041 2150 Output Total 600 300 Balance 3441 1850 Lab Results Last 24 Hours: Laboratory Results - last 24 hr 03/08/18 03/09/18 03/09/18 Range/Units 14:12 04:58 04:58 WBC 10.11 (4.0-11.0) K/uL RBC 4.14 L (4.50-5.90) M/uL Hgb 9.8 L (13.0-17.0) g/dL Hct 31.1 L (38.0-50.0) % MCV 75.1 L (80.0-98.0) fL MCH 23.7 L (27.0-32.0) pg MCHC 31.5 (31.0-37.0) g/dL RDW Std Deviation 44.8 (28.0-62.0) fl RDW Coeff of Ellyn 16 H (11.0-15.0) % Plt Count 323 (150-400) K/uL MPV 9.90 (7.40-12.00) fL Neut % (Auto) 80.7 H (48.0-80.0) % Lymph % (Auto) 12.8 L (16.0-40.0) % Rice % (Auto) 5.1 (0.0-15.0) % Eos % (Auto) 1.1 (0.0-7.0) % Baso % (Auto) 0.3 (0.0-1.5) % Neut # (Auto) 8.2 H (1.4-5.7) K/uL Lymph # (Auto) 1.3 (0.6-2.4) K/uL Rice # (Auto) 0.5 (0.0-0.8) K/uL Eos # (Auto) 0.1 (0.0-0.7) K/uL Baso # (Auto) 0.0 (0.0-0.1) K/uL Nucleated RBC % 0.0 /100WBC Nucleated RBCs # 0 K/uL Sodium 139 (136-148) mmol/L Potassium 3.6 (3.5-5.1) mmol/L Chloride 110 H (98-107) mmol/L Carbon Dioxide 21.6 (21.0-32.0) mmol/L BUN 32 H (7.0-18.0) mg/dL Creatinine 1.4 H (0.8-1.3) mg/dL Est Cr Clr Drug Dosing 36.94 mL/min Estimated GFR (MDRD) 48.2 ml/min Glucose 92 (74-106) mg/dL Calcium 8.0 L (8.5-10.1) mg/dL Troponin I < 0.050 (0.000-0.056) ng/mL Kevin Results Last 24 Hours: Microbiology 03/08/18 05:30 Campylobacter Antigen Assay - Final Stool / Feces NEGATIVE CAMPYLOBACTER AG - Final NEGATIVE FOR SHIGA TOXIN 1 - Final NEGATIVE FOR SHIGA TOXIN 2 03/07/18 19:40 Urine Culture - Final Urine, Clean Catch MIXED SUMAN 1,000-10,000 CFU/ML 03/07/18 18:15 Aerobic Blood Culture - Preliminary Blood - Venous - Lab Draw NO GROWTH AFTER 1 DAY Anaerobic Blood Culture - Preliminary NO GROWTH AFTER 1 DAY 03/07/18 17:26 Aerobic Blood Culture - Preliminary Blood - Venous NO GROWTH AFTER 1 DAY Anaerobic Blood Culture - Preliminary NO GROWTH AFTER 1 DAY 03/08/18 05:30 Clostridium difficile Toxin A & B - Final Stool / Feces Positive C. Diff Antigen Med Orders - Current: Current Medications Acetaminophen (Tylenol) 650 mg PO Q6H PRN PRN Reason: Pain Last Admin: 03/08/18 17:35 Dose: 650 mg Gabapentin (Neurontin) 300 mg PO BID [facility] Lactated Ringer's (Ringers, Lactated) 1,000 mls @ 125 mls/hr IV ASDIRECTED [facility] Last Admin: 03/09/18 04:21 Dose: 125 mls/hr Metronidazole 500 mg/ Premix 100 mls @ 100 mls/hr IV TID [facility] Last Admin: 03/09/18 05:42 Dose: 100 mls/hr Midodrine (Midodrine) 10 mg PO TIDAC [facility] Last Admin: 03/09/18 06:44 Dose: 10 mg Sodium Chloride (Saline Flush) 10 ml FLUSH ASDIRECTED PRN PRN Reason: Keep Vein Open Sodium Chloride (Saline Flush) 2.5 ml FLUSH ASDIRECTED PRN PRN Reason: Keep Vein Open Vancomycin HCl (Vancomycin) 500 mg PO QID [facility] Last Admin: 03/09/18 05:44 Dose: 500 mg Discontinued Medications Hydrocortisone Sodium Succinate (Solu-Cortef) 100 mg IVPUSH Q8H [facility] Last Admin: 03/08/18 05:52 Dose: 100 mg Sodium Chloride (Normal Saline) 1,000 mls @ 999 mls/hr IV STAT ONE Stop: 03/07/18 18:29 Last Admin: 03/07/18 17:31 Dose: 999 mls/hr Sodium Chloride (Normal Saline) 1,000 mls @ 999 mls/hr IV STAT ONE Stop: 03/07/18 19:51 Last Admin: 03/07/18 18:52 Dose: 999 mls/hr Lactated Ringer's (Ringers, Lactated) 1,000 mls @ 999 mls/hr IV ONETIME ONE Stop: 03/07/18 22:56 Last Admin: 03/07/18 23:27 Dose: Not Given Piperacillin Sod/Tazobactam (Sod 3.375 gm/ Sodium Chloride) 50 mls @ 100 mls/ hr IV Q8H [facility] Last Admin: 03/08/18 08:00 Dose: 100 mls/hr Vancomycin HCl 1 gm/ Sodium (Chloride) 250 mls @ 166 mls/hr IV Q24H [facility] Last Admin: 03/08/18 01:52 Dose: 166 mls/hr Sodium Chloride (Normal Saline) 1,000 mls @ 999 drops/min IV .Bolus ONE Stop: 03/08/18 16:12 Last Admin: 03/08/18 16:06 Dose: 999 drops/min Sodium Chloride (Normal Saline) 500 mls @ 999 mls/hr IV .Bolus ONE Stop: 03/09/18 01:43 Last Admin: 03/09/18 01:37 Dose: 999 mls/hr Ondansetron HCl (Zofran) 4 mg IVPUSH ONETIME ONE Stop: 03/07/18 17:28 Last Admin: 03/07/18 17:28 Dose: 4 mg Pantoprazole Sodium (Protonix Iv) 80 mg IVPUSH .BOLUS ONE Stop: 03/07/18 18:13 Last Admin: 03/07/18 18:44 Dose: 80 mg Pantoprazole Sodium (Protonix Iv) 40 mg IVPUSH DAILY [facility] Last Admin: 03/08/18 08:39 Dose: 40 mg Vancomycin HCl (Pharmacy To Dose - Vancomycin) 1 dose .XX ASDIRECTED [facility] Vancomycin HCl (Vancomycin) 125 mg PO QID [facility] Last Admin: 03/08/18 09:10 Dose: Not Given - Exam General: Alert, Oriented, Cooperative, No Acute Distress Neck: Supple Lungs: Clear to Auscultation, Normal Respiratory Effort Cardiovascular: Regular Rhythm, Bradycardia GI/Abdominal Exam: Normal Bowel Sounds, Soft, Non-Tender, No Organomegaly, No Distention, No Abnormal Bruit, No Mass, Pelvis Stable Extremities: Normal Inspection, Normal Range of Motion, Non-Tender, No Pedal Edema, Normal Capillary Refill Peripheral Pulses: 2+: Radial (L), Radial (R), Posterior Tibial (L), Posterior Tibial (R) Skin: Warm, Dry, Intact Neurological: No New Focal Deficit, Other (Patient does stutter when speaking secondary to a prior CVA.) Psy/Mental Status: Alert, Normal Affect, Normal Mood - Problem List & Annotations (1) C. difficile colitis SNOMED Code(s): 439689550 Code(s): A04.72 - ENTEROCOLITIS D/T CLOSTRIDIUM DIFFICILE, NOT SPCF RECUR Status: Acute Current Visit: Yes (2) Hypotension SNOMED Code(s): 76939652 Code(s): I95.9 - HYPOTENSION, UNSPECIFIED Status: Acute Current Visit: Yes Qualifiers: Hypotension type: unspecified hypotension type Qualified Code(s): I95.9 - Hypotension, unspecified (3) Occult blood positive stool SNOMED Code(s): 04600762, 241115197 Code(s): R19.5 - OTHER FECAL ABNORMALITIES Status: Acute Current Visit: Yes (4) Syncope SNOMED Code(s): 030348728 Code(s): R55 - SYNCOPE AND COLLAPSE Status: Acute Current Visit: Yes Qualifiers: Syncope type: unspecified Qualified Code(s): R55 - Syncope and collapse (5) Bradycardia SNOMED Code(s): 57368171 Code(s): R00.1 - BRADYCARDIA, UNSPECIFIED Status: Acute Current Visit: No - Problem List Review Problem List Initiated/Reviewed/Updated: Yes - My Orders Last 24 Hours: My Active Orders 03/08/18 11:23 Consult to Physician [CONS] Routine 03/08/18 11:24 Notify Provider Consults [RC] ASDIRECTED 03/08/18 11:30 Midodrine 10 mg PO TIDAC 03/08/18 12:00 Vancomycin 500 mg PO QID 03/08/18 14:00 metroNIDAZOLE/Normal Saline [Flagyl 500 MG in NS 100 ML] 500 mg Premix Bag 1 bag IV TID 03/09/18 09:43 Transfer Patient (Change bed) [ADT] Routine 03/09/18 10:00 Gabapentin [Neurontin] 300 mg PO BID - Plan Plan:: 87-year-old male that is admitted with a witnessed syncopal episode. #1. Syncope: -Patient remains on telemetry. Telemetry shows first-degree AV block with a heart rate in the range of 50-90. Patient denies any chest pain. -Echocardiogram showed a normal ejection fraction and no other abnormalities. -Serial troponins were negative. -Carotid ultrasound is unremarkable. #2. Hypotension: -This could be the result of his C. difficile infection and subsequent diarrhea. All antihypertensive medications have been held. He is getting IV fluids. Continue midodrine 10 mg 3 times a day. -Patient is status post 1 unit of packed red blood cells. His hemoglobin has dropped to 9.8 this morning from a previous of 11.3. This is most likely dilutional as the patient's +6.2 L since admission. #3. C. difficile: -Stool cultures came back positive for C. difficile. Other stool cultures were negative. -Continue IV Flagyl 500 mg 3 times a day and by mouth vancomycin 500 mg 4 times a day. -White count has returned to normal. #4. Bradycardia: -Heart rate varies between 40-60 bpm. Patient is asymptomatic. I spoke with his PCP, Dr. Ceballos, and we reviewed his previous vital signs when in clinic and he has had low heart rates in the past. I also spoke with Dr. Zhao who has been consulted on the patient and he recommends that the patient may need an outpatient Holter monitor for more consistent monitoring of his heart rate and rhythm. -We will continue to follow the recommendations of Dr. Zhao. DVT prophylaxis: SCDs. Disposition: 1-2 days pending improvement. <Dg Castellanos - Last Filed: 03/09/18 13:05> - Patient Data Vitals - Most Recent: Last Vital Signs Temp 96.8 F 03/09/18 12:18 Pulse 42 L 03/09/18 12:18 Resp 16 03/09/18 12:18 BP 115/39 L 03/09/18 12:18 Pulse Ox 98 03/09/18 12:18 Orthostatic Blood Pressure [ 114/63 Standing] Orthostatic Blood Pressure [ 104/63 Sitting] Orthostatic Blood Pressure [ 89/62 Supine] I&O - Last 24 Hours: Intake & Output 03/08/18 03/09/18 03/09/18 22:59 06:59 14:59 Intake Total 4041 2150 Output Total 600 300 Balance 3441 1850 Lab Results Last 24 Hours: Laboratory Results - last 24 hr 04/23/18 04/24/18 04/24/18 Range/Units 14:12 04:58 04:58 WBC 10.11 (4.0-11.0) K/uL RBC 4.14 L (4.50-5.90) M/uL Hgb 9.8 L (13.0-17.0) g/dL Hct 31.1 L (38.0-50.0) % MCV 75.1 L (80.0-98.0) fL MCH 23.7 L (27.0-32.0) pg MCHC 31.5 (31.0-37.0) g/dL RDW Std Deviation 44.8 (28.0-62.0) fl RDW Coeff of Ellyn 16 H (11.0-15.0) % Plt Count 323 (150-400) K/uL MPV 9.90 (7.40-12.00) fL Neut % (Auto) 80.7 H (48.0-80.0) % Lymph % (Auto) 12.8 L (16.0-40.0) % Rice % (Auto) 5.1 (0.0-15.0) % Eos % (Auto) 1.1 (0.0-7.0) % Baso % (Auto) 0.3 (0.0-1.5) % Neut # (Auto) 8.2 H (1.4-5.7) K/uL Lymph # (Auto) 1.3 (0.6-2.4) K/uL Rice # (Auto) 0.5 (0.0-0.8) K/uL Eos # (Auto) 0.1 (0.0-0.7) K/uL Baso # (Auto) 0.0 (0.0-0.1) K/uL Nucleated RBC % 0.0 /100WBC Nucleated RBCs # 0 K/uL Sodium 139 (136-148) mmol/L Potassium 3.6 (3.5-5.1) mmol/L Chloride 110 H (98-107) mmol/L Carbon Dioxide 21.6 (21.0-32.0) mmol/L BUN 32 H (7.0-18.0) mg/dL Creatinine 1.4 H (0.8-1.3) mg/dL Est Cr Clr Drug Dosing 36.94 mL/min Estimated GFR (MDRD) 48.2 ml/min Glucose 92 (74-106) mg/dL Calcium 8.0 L (8.5-10.1) mg/dL Troponin I < 0.050 (0.000-0.056) ng/mL Kevin Results Last 24 Hours: Microbiology 03/08/18 05:30 Campylobacter Antigen Assay - Final Stool / Feces NEGATIVE CAMPYLOBACTER AG - Final NEGATIVE FOR SHIGA TOXIN 1 - Final NEGATIVE FOR SHIGA TOXIN 2 03/07/18 19:40 Urine Culture - Final Urine, Clean Catch MIXED SUMAN 1,000-10,000 CFU/ML 03/07/18 18:15 Aerobic Blood Culture - Preliminary Blood - Venous - Lab Draw NO GROWTH AFTER 1 DAY Anaerobic Blood Culture - Preliminary NO GROWTH AFTER 1 DAY 03/07/18 17:26 Aerobic Blood Culture - Preliminary Blood - Venous NO GROWTH AFTER 1 DAY Anaerobic Blood Culture - Preliminary NO GROWTH AFTER 1 DAY Med Orders - Current: Current Medications Acetaminophen (Tylenol) 650 mg PO Q6H PRN PRN Reason: Pain Last Admin: 03/08/18 17:35 Dose: 650 mg Gabapentin (Neurontin) 300 mg PO BID [facility] Last Admin: 03/09/18 11:09 Dose: 300 mg Lactated Ringer's (Ringers, Lactated) 1,000 mls @ 125 mls/hr IV ASDIRECTED [facility] Last Admin: 03/09/18 04:21 Dose: 125 mls/hr Metronidazole 500 mg/ Premix 100 mls @ 100 mls/hr IV TID [facility] Last Admin: 03/09/18 05:42 Dose: 100 mls/hr Midodrine (Midodrine) 10 mg PO TIDAC [facility] Last Admin: 03/09/18 11:09 Dose: 10 mg Sodium Chloride (Saline Flush) 10 ml FLUSH ASDIRECTED PRN PRN Reason: Keep Vein Open Sodium Chloride (Saline Flush) 2.5 ml FLUSH ASDIRECTED PRN PRN Reason: Keep Vein Open Vancomycin HCl (Vancomycin) 500 mg PO QID [facility] Last Admin: 03/09/18 11:10 Dose: 500 mg Discontinued Medications Hydrocortisone Sodium Succinate (Solu-Cortef) 100 mg IVPUSH Q8H [facility] Last Admin: 03/08/18 05:52 Dose: 100 mg Sodium Chloride (Normal Saline) 1,000 mls @ 999 mls/hr IV STAT ONE Stop: 03/07/18 18:29 Last Admin: 03/07/18 17:31 Dose: 999 mls/hr Sodium Chloride (Normal Saline) 1,000 mls @ 999 mls/hr IV STAT ONE Stop: 03/07/18 19:51 Last Admin: 03/07/18 18:52 Dose: 999 mls/hr Lactated Ringer's (Ringers, Lactated) 1,000 mls @ 999 mls/hr IV ONETIME ONE Stop: 03/07/18 22:56 Last Admin: 03/07/18 23:27 Dose: Not Given Piperacillin Sod/Tazobactam (Sod 3.375 gm/ Sodium Chloride) 50 mls @ 100 mls/ hr IV Q8H [facility] Last Admin: 03/08/18 08:00 Dose: 100 mls/hr Vancomycin HCl 1 gm/ Sodium (Chloride) 250 mls @ 166 mls/hr IV Q24H [facility] Last Admin: 03/08/18 01:52 Dose: 166 mls/hr Sodium Chloride (Normal Saline) 1,000 mls @ 999 drops/min IV .Bolus ONE Stop: 03/08/18 16:12 Last Admin: 03/08/18 16:06 Dose: 999 drops/min Sodium Chloride (Normal Saline) 500 mls @ 999 mls/hr IV .Bolus ONE Stop: 03/09/18 01:43 Last Admin: 03/09/18 01:37 Dose: 999 mls/hr Ondansetron HCl (Zofran) 4 mg IVPUSH ONETIME ONE Stop: 03/07/18 17:28 Last Admin: 03/07/18 17:28 Dose: 4 mg Pantoprazole Sodium (Protonix Iv) 80 mg IVPUSH .BOLUS ONE Stop: 03/07/18 18:13 Last Admin: 03/07/18 18:44 Dose: 80 mg Pantoprazole Sodium (Protonix Iv) 40 mg IVPUSH DAILY [facility] Last Admin: 03/08/18 08:39 Dose: 40 mg Vancomycin HCl (Pharmacy To Dose - Vancomycin) 1 dose .XX ASDIRECTED [facility] Vancomycin HCl (Vancomycin) 125 mg PO QID [facility] Last Admin: 03/08/18 09:10 Dose: Not Given - Problem List & Annotations (1) Hypotension SNOMED Code(s): 97825536 Code(s): I95.9 - HYPOTENSION, UNSPECIFIED Status: Acute Current Visit: Yes Qualifiers: Hypotension type: unspecified hypotension type Qualified Code(s): I95.9 - Hypotension, unspecified (2) Occult blood positive stool SNOMED Code(s): 02163665, 591395889 Code(s): R19.5 - OTHER FECAL ABNORMALITIES Status: Acute Current Visit: Yes (3) Syncope SNOMED Code(s): 151767641 Code(s): R55 - SYNCOPE AND COLLAPSE Status: Acute Current Visit: Yes Qualifiers: Syncope type: unspecified Qualified Code(s): R55 - Syncope and collapse (4) Bradycardia SNOMED Code(s): 47556081 Code(s): R00.1 - BRADYCARDIA, UNSPECIFIED Status: Acute Current Visit: No - My Orders Last 24 Hours: My Active Orders 03/08/18 Dinner Regular Diet [DIET] 03/09/18 10:30 Telemetry Monitoring [Cardiac Monitoring] [RC] . DIRECTED
[2018-03-09] MEDS: Gabapentin 300 MG Cap PO SCH ×2 (11:09→21:59)
--- NOTE | 2018-03-09 11:51 | CONS ---
DATE OF CONSULTATION: 03/08/2018 DATE OF : 1930 PRIMARY CARE PHYSICIAN: None PCP REASON FOR CONSULTATION: Low blood pressure, hypotension. 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 He is also stating that he also was sweating as well. When he came to the emergency room, he was found to have borderline blood pressure, even low, with a blood pressure of 93/47, and he was on lisinopril 10 mg, as well as hydrochlorothiazide 12.5 mg for his blood pressure, when he was in the hospital. He was reported to have the diarrhea, which was the same as watery stool plus a formed stool three times without abdominal pain. He felt nauseous with it. He also noted to have a worsening leukocytosis with a white blood cell of 19,000 and also found to have anemia. He got 1 unit of blood. Initial hematocrit of 29, is improving to 35. He was also noted to have elevated lactate and coming down to 1.5, as well as the worsening kidney function. His baseline kidney function was 0.9 to 1.0, but because of this possible septic shock, his creatinine went up to 1.6. When I talked to him, he denied chest pain, denied shortness of breath. However, he feels weak. He is still feeling dizzy when he gets up and walks around. CURRENT MEDICATIONS: Including Ringer lactate IV at 125 per hour, metronidazole 500 mg IV t.i.d., vancomycin 500 mg p.o. q.i.d., as well as midodrine was started 10 mg t.i.d., and the lisinopril and hydrochlorothiazide were on hold. ALLERGY: He is allergic to sulfur medicine. PAST MEDICAL HISTORY: Including history of old CVA, hypertension. SOCIAL HISTORY: Current smoker. No drug use. No alcohol consumption. REVIEW OF SYSTEMS: Otherwise has been negative, except as indicated in HPI. PHYSICAL EXAMINATION: VITAL SIGNS: Current blood pressure is 105/61, is improving from 80 to 90s, heart rate is between 50s to 80s, O2 saturation is 95% on room air, and respirations 15. HEENT: Not pale. No jaundice. NECK: No JVD. HEART: Normal S1 and S2. No murmur. Bradycardia. LUNGS: Clear. ABDOMEN: Soft and nontender. Bowel sounds are present and bowel sounds hyperactive. No rebound tenderness. LEGS: No edema. INVESTIGATION: CBC showed WBC of 19, going up from 13; hematocrit of 35, going up from 29, receiving a unit of blood; and platelet 155,000. Lactate 2.8, is coming down to 1.5. Sodium 142, potassium 4.7, chloride 110, bicarb 20, BUN 37, and creatinine 1.6. Troponin was negative. Liver function tests were normal. H. pylori is negative. ECG 03/07/2018 SR HR 62 VT 179 QRS 96 QTc 440 ECG 03/08/2018 SR HR 49 VT 335 QRS 93 ASSESSMENT AND PLAN: This is an 87-year-old male, who has a history of hypertension, on antihypertensive medication, presented to hospital with a syncopal episode, as well as low blood pressure with possible diarrhea with positive Clostridium difficile infection, with severe leukocytosis. His bowel sounds are hyperactive. I do not think that he has a toxic megacolon right now. He is being treated for Clostridium difficile colitis, and I think part of the reason for the low blood pressure could be related to hypovolemic from sepsis and diarrhea, even though the diarrhea does not seem to be very excessive. He should be getting IV fluid for IV fluid resuscitation. He is also having the acute kidney injury on top of his normal kidney function. After IV fluid of about 1 to 2 L, if he still develops hypotension, he probably needs a vasopressor IV drip. We need to get an echocardiogram to make sure that he does not have left ventricular systolic dysfunction as well. We will also get an EKG as well. His antihypertensive medication should be on hold for now. KOBI VIERA /[id number] REGGIE
--- NOTE | 2018-03-09 22:27 | PCM.PN ---
- General Info Date of Service: 03/09/18 Admission Dx/Problem (Free Text): Admission Diagnosis/Problem Admission Diagnosis/Problem Syncope Subjective Update: he stated that he had 6 diarrhea with loosed stool, he denied abdominal pain, he ate some food but not all, denied fever, WBC improving. He has persistent bradycardia, he stated that he had some dizziness but he has not had any, he has ambulated some he denied dizziness now even with getting up. On IVF 125 Functional Status: Reports: Pain Controlled - Review of Systems General: Reports: No Symptoms HEENT: Reports: No Symptoms Pulmonary: Reports: No Symptoms Cardiovascular: Reports: No Symptoms Gastrointestinal: Reports: Decreased Appetite, Diarrhea Genitourinary: Reports: No Symptoms Musculoskeletal: Reports: No Symptoms Skin: Reports: No Symptoms - Patient Data Vitals - Most Recent: Last Vital Signs Temp 36.2 C 03/09/18 20:00 Pulse 44 L 03/09/18 20:00 Resp 16 03/09/18 20:00 BP 112/50 L 03/09/18 20:00 Pulse Ox 97 03/09/18 20:00 Orthostatic Blood Pressure [ 114/63 Standing] Orthostatic Blood Pressure [ 104/63 Sitting] Orthostatic Blood Pressure [ 89/62 Supine] Weight - Most Recent: 67.7 kg I&O - Last 24 Hours: Intake & Output 03/09/18 03/09/18 03/09/18 06:59 14:59 22:59 Intake Total 2150 100 2877 Output Total 300 50 Balance 4394 640 7188 Lab Results Last 24 Hours: Laboratory Results - last 24 hr 03/09/18 03/09/18 Range/Units 04:58 04:58 WBC 10.11 (4.0-11.0) K/uL RBC 4.14 L (4.50-5.90) M/uL Hgb 9.8 L (13.0-17.0) g/dL Hct 31.1 L (38.0-50.0) % MCV 75.1 L (80.0-98.0) fL MCH 23.7 L (27.0-32.0) pg MCHC 31.5 (31.0-37.0) g/dL RDW Std Deviation 44.8 (28.0-62.0) fl RDW Coeff of Ellyn 16 H (11.0-15.0) % Plt Count 323 (150-400) K/uL MPV 9.90 (7.40-12.00) fL Neut % (Auto) 80.7 H (48.0-80.0) % Lymph % (Auto) 12.8 L (16.0-40.0) % [place] % (Auto) 5.1 (0.0-15.0) % Eos % (Auto) 1.1 (0.0-7.0) % Baso % (Auto) 0.3 (0.0-1.5) % Neut # (Auto) 8.2 H (1.4-5.7) K/uL Lymph # (Auto) 1.3 (0.6-2.4) K/uL [place] # (Auto) 0.5 (0.0-0.8) K/uL Eos # (Auto) 0.1 (0.0-0.7) K/uL Baso # (Auto) 0.0 (0.0-0.1) K/uL Nucleated RBC % 0.0 /100WBC Nucleated RBCs # 0 K/uL Sodium 139 (136-148) mmol/L Potassium 3.6 (3.5-5.1) mmol/L Chloride 110 H (98-107) mmol/L Carbon Dioxide 21.6 (21.0-32.0) mmol/L BUN 32 H (7.0-18.0) mg/dL Creatinine 1.4 H (0.8-1.3) mg/dL Est Cr Clr Drug Dosing 36.94 mL/min Estimated GFR (MDRD) 48.2 ml/min Glucose 92 (74-106) mg/dL Calcium 8.0 L (8.5-10.1) mg/dL Kevin Results Last 24 Hours: Microbiology 03/07/18 18:15 Aerobic Blood Culture - Preliminary Blood - Venous - Lab Draw NO GROWTH AFTER 2 DAYS Anaerobic Blood Culture - Preliminary NO GROWTH AFTER 2 DAYS 03/07/18 17:26 Aerobic Blood Culture - Preliminary Blood - Venous NO GROWTH AFTER 2 DAYS Anaerobic Blood Culture - Preliminary NO GROWTH AFTER 2 DAYS 03/08/18 05:30 Campylobacter Antigen Assay - Final Stool / Feces NEGATIVE CAMPYLOBACTER AG - Final NEGATIVE FOR SHIGA TOXIN 1 - Final NEGATIVE FOR SHIGA TOXIN 2 03/07/18 19:40 Urine Culture - Final Urine, Clean Catch MIXED SUMAN 1,000-10,000 CFU/ML Med Orders - Current: Current Medications Acetaminophen (Tylenol) 650 mg PO Q6H PRN PRN Reason: Pain Last Admin: 03/08/18 17:35 Dose: 650 mg Gabapentin (Neurontin) 300 mg PO BID [facility] Last Admin: 03/09/18 21:59 Dose: 300 mg Metronidazole 500 mg/ Premix 100 mls @ 100 mls/hr IV TID [facility] Last Admin: 03/09/18 22:02 Dose: 100 mls/hr Lactated Ringer's (Ringers, Lactated) 1,000 mls @ 75 mls/hr IV ASDIRECTED [facility] Last Admin: 03/09/18 22:01 Dose: 75 mls/hr Midodrine (Midodrine) 10 mg PO TIDAC [facility] Last Admin: 03/09/18 16:34 Dose: 10 mg Sodium Chloride (Saline Flush) 10 ml FLUSH ASDIRECTED PRN PRN Reason: Keep Vein Open Sodium Chloride (Saline Flush) 2.5 ml FLUSH ASDIRECTED PRN PRN Reason: Keep Vein Open Vancomycin HCl (Vancomycin) 500 mg PO QID [facility] Last Admin: 03/09/18 18:04 Dose: 500 mg Discontinued Medications Hydrocortisone Sodium Succinate (Solu-Cortef) 100 mg IVPUSH Q8H [facility] Last Admin: 03/08/18 05:52 Dose: 100 mg Sodium Chloride (Normal Saline) 1,000 mls @ 999 mls/hr IV STAT ONE Stop: 03/07/18 18:29 Last Admin: 03/07/18 17:31 Dose: 999 mls/hr Sodium Chloride (Normal Saline) 1,000 mls @ 999 mls/hr IV STAT ONE Stop: 03/07/18 19:51 Last Admin: 03/07/18 18:52 Dose: 999 mls/hr Lactated Ringer's (Ringers, Lactated) 1,000 mls @ 999 mls/hr IV ONETIME ONE Stop: 03/07/18 22:56 Last Admin: 03/07/18 23:27 Dose: Not Given Lactated Ringer's (Ringers, Lactated) 1,000 mls @ 125 mls/hr IV ASDIRECTED [facility] Last Infusion: 03/09/18 22:00 Dose: 125 mls/hr Piperacillin Sod/Tazobactam (Sod 3.375 gm/ Sodium Chloride) 50 mls @ 100 mls/ hr IV Q8H [facility] Last Admin: 03/08/18 08:00 Dose: 100 mls/hr Vancomycin HCl 1 gm/ Sodium (Chloride) 250 mls @ 166 mls/hr IV Q24H [facility] Last Admin: 03/08/18 01:52 Dose: 166 mls/hr Sodium Chloride (Normal Saline) 1,000 mls @ 999 drops/min IV .Bolus ONE Stop: 03/08/18 16:12 Last Admin: 03/08/18 16:06 Dose: 999 drops/min Sodium Chloride (Normal Saline) 500 mls @ 999 mls/hr IV .Bolus ONE Stop: 03/09/18 01:43 Last Admin: 03/09/18 01:37 Dose: 999 mls/hr Ondansetron HCl (Zofran) 4 mg IVPUSH ONETIME ONE Stop: 03/07/18 17:28 Last Admin: 03/07/18 17:28 Dose: 4 mg Pantoprazole Sodium (Protonix Iv) 80 mg IVPUSH .BOLUS ONE Stop: 03/07/18 18:13 Last Admin: 03/07/18 18:44 Dose: 80 mg Pantoprazole Sodium (Protonix Iv) 40 mg IVPUSH DAILY [facility] Last Admin: 03/08/18 08:39 Dose: 40 mg Vancomycin HCl (Pharmacy To Dose - Vancomycin) 1 dose .XX ASDIRECTED [facility] Vancomycin HCl (Vancomycin) 125 mg PO QID [facility] Last Admin: 03/08/18 09:10 Dose: Not Given - Exam General: Alert, Oriented HEENT: Pupils Equal, Pupils Reactive Neck: Supple Lungs: Clear to Auscultation Cardiovascular: Regular Rate, Regular Rhythm, Bradycardia GI/Abdominal Exam: Abnormal Bowel Sounds (Male) Exam: No Hernia Back Exam: Normal Inspection EKG INTERPRETATION Rhythm: Other (there were AV dissociation at 538 pm, there was prolongation of PP interval, this could be vagal response from GI.) - Problem List Review Problem List Initiated/Reviewed/Updated: Yes - My Orders Last 24 Hours: My Active Orders 03/09/18 21:15 Lactated Ringers [Ringers, Lactated] 1,000 ml IV ASDIRECTED - Plan Plan:: 87-year-old male that is admitted with a witnessed syncopal episode, hypotension , with c diff infection 1. [facility], now BP improved, he still had 6 loosed stool today, will slow down the IVF to 75cc/hr, he is on midodrine per hospitalist. his pre-crowe echo showed preserved LVEF. His bradycardia was 40-50, it was noted when he walked his HR was improved to 60-70, without dizziness. there were AV dissociation at 538 pm, there was prolongation of PP interval, this could be vagal response from GI. I will touch base with EPS about this - treat C diff per hospitalist - slow down IVF - continue telemetry
[2018-03-10] MEDS: Vancomycin 1,000 MG SDV PO SCH ×5 (01:00→23:33)
[2018-03-10] MEDS: metroNIDAZOLE/Normal Saline 500 MG in Premix Bag 1 BAG IV SCH ×3 (05:13→21:08)
[2018-03-10] MEDS: Midodrine 5 MG Tab PO SCH ×3 (06:36→17:10)
[2018-03-10 06:45] LABS: CHLORIDE,CL 112 mmol/L (98-107); SODIUM,NA 142 mmol/L (136-148)
[2018-03-10] MEDS: Gabapentin 300 MG Cap PO SCH ×2 (08:38→21:08)
--- NOTE | 2018-03-10 09:23 | PCM.PN ---
<Oli Knox - Last Filed: 03/10/18 09:24> - General Info Date of Service: 03/10/18 Admission Dx/Problem (Free Text): Admission Diagnosis/Problem Admission Diagnosis/Problem Syncope Subjective Update: Patient is doing well this morning and has no acute concerns. He did have 7 loose stools yesterday that were nonbloody and not black. He denies any abdominal pain. He is tolerating oral intake. He continues on IV antibiotics and oral antibiotics. He is ambulating without assistance. - Review of Systems General: Reports: No Symptoms HEENT: Reports: No Symptoms Pulmonary: Reports: No Symptoms Cardiovascular: Reports: No Symptoms Gastrointestinal: Reports: Diarrhea Genitourinary: Reports: No Symptoms Musculoskeletal: Reports: No Symptoms Skin: Reports: No Symptoms Neurological: Reports: No Symptoms Psychiatric: Reports: No Symptoms - Patient Data Vitals - Most Recent: Last Vital Signs Temp 98.1 F 03/10/18 07:48 Pulse 44 L 03/10/18 07:48 Resp 14 03/10/18 07:48 BP 132/49 L 03/10/18 07:48 Pulse Ox 97 03/10/18 07:48 Orthostatic Blood Pressure [ 127/46 Standing] Orthostatic Blood Pressure [ 115/47 Sitting] Orthostatic Blood Pressure [ 108/39 Supine] Weight - Most Recent: 144 lb 6.444 oz I&O - Last 24 Hours: Intake & Output 03/09/18 03/10/18 03/10/18 22:59 06:59 14:59 Intake Total 2877 250 Output Total 50 Balance 2827 250 Lab Results Last 24 Hours: Laboratory Results - last 24 hr 03/10/18 03/10/18 Range/Units 05:33 05:33 WBC 8.96 (4.0-11.0) K/uL RBC 4.48 L (4.50-5.90) M/uL Hgb 10.7 L (13.0-17.0) g/dL Hct 34.0 L (38.0-50.0) % MCV 75.9 L (80.0-98.0) fL MCH 23.9 L (27.0-32.0) pg MCHC 31.5 (31.0-37.0) g/dL RDW Std Deviation 46.5 (28.0-62.0) fl RDW Coeff of Ellyn 17 H (11.0-15.0) % Plt Count 380 (150-400) K/uL MPV 9.80 (7.40-12.00) fL Nucleated RBC % 0.0 /100WBC Nucleated RBCs # 0 K/uL Sodium 142 (136-148) mmol/L Potassium 3.9 (3.5-5.1) mmol/L Chloride 112 H (98-107) mmol/L Carbon Dioxide 21.5 (21.0-32.0) mmol/L BUN 22 H (7.0-18.0) mg/dL Creatinine 1.1 (0.8-1.3) mg/dL Est Cr Clr Drug Dosing 45.49 mL/min Estimated GFR (MDRD) > 60.0 ml/min Glucose 84 (74-106) mg/dL Calcium 8.7 (8.5-10.1) mg/dL Kevin Results Last 24 Hours: Microbiology 03/08/18 05:30 Stool Culture - Final Stool / Feces NO SALMONELLA, SHIGELLA,OR E.COLI O157 ISOLATED Campylobacter Antigen Assay - Final NEGATIVE CAMPYLOBACTER AG - Final NEGATIVE FOR SHIGA TOXIN 1 - Final NEGATIVE FOR SHIGA TOXIN 2 03/07/18 18:15 Aerobic Blood Culture - Preliminary Blood - Venous - Lab Draw NO GROWTH AFTER 2 DAYS Anaerobic Blood Culture - Preliminary NO GROWTH AFTER 2 DAYS 03/07/18 17:26 Aerobic Blood Culture - Preliminary Blood - Venous NO GROWTH AFTER 2 DAYS Anaerobic Blood Culture - Preliminary NO GROWTH AFTER 2 DAYS 03/07/18 19:40 Urine Culture - Final Urine, Clean Catch MIXED SUMAN 1,000-10,000 CFU/ML Med Orders - Current: Current Medications Acetaminophen (Tylenol) 650 mg PO Q6H PRN PRN Reason: Pain Last Admin: 03/08/18 17:35 Dose: 650 mg Gabapentin (Neurontin) 300 mg PO BID [facility] Last Admin: 03/10/18 08:38 Dose: 300 mg Metronidazole 500 mg/ Premix 100 mls @ 100 mls/hr IV TID [facility] Last Admin: 03/10/18 05:13 Dose: 100 mls/hr Lactated Ringer's (Ringers, Lactated) 1,000 mls @ 75 mls/hr IV ASDIRECTED [facility] Last Admin: 03/09/18 22:01 Dose: 75 mls/hr Midodrine (Midodrine) 10 mg PO TIDAC [facility] Last Admin: 03/10/18 06:36 Dose: 10 mg Sodium Chloride (Saline Flush) 10 ml FLUSH ASDIRECTED PRN PRN Reason: Keep Vein Open Sodium Chloride (Saline Flush) 2.5 ml FLUSH ASDIRECTED PRN PRN Reason: Keep Vein Open Vancomycin HCl (Vancomycin) 500 mg PO QID [facility] Last Admin: 03/10/18 05:18 Dose: 500 mg Discontinued Medications Hydrocortisone Sodium Succinate (Solu-Cortef) 100 mg IVPUSH Q8H [facility] Last Admin: 03/08/18 05:52 Dose: 100 mg Sodium Chloride (Normal Saline) 1,000 mls @ 999 mls/hr IV STAT ONE Stop: 03/07/18 18:29 Last Admin: 03/07/18 17:31 Dose: 999 mls/hr Sodium Chloride (Normal Saline) 1,000 mls @ 999 mls/hr IV STAT ONE Stop: 03/07/18 19:51 Last Admin: 03/07/18 18:52 Dose: 999 mls/hr Lactated Ringer's (Ringers, Lactated) 1,000 mls @ 999 mls/hr IV ONETIME ONE Stop: 03/07/18 22:56 Last Admin: 03/07/18 23:27 Dose: Not Given Lactated Ringer's (Ringers, Lactated) 1,000 mls @ 125 mls/hr IV ASDIRECTED [facility] Last Infusion: 03/09/18 22:00 Dose: 125 mls/hr Piperacillin Sod/Tazobactam (Sod 3.375 gm/ Sodium Chloride) 50 mls @ 100 mls/ hr IV Q8H [facility] Last Admin: 03/08/18 08:00 Dose: 100 mls/hr Vancomycin HCl 1 gm/ Sodium (Chloride) 250 mls @ 166 mls/hr IV Q24H [facility] Last Admin: 03/08/18 01:52 Dose: 166 mls/hr Sodium Chloride (Normal Saline) 1,000 mls @ 999 drops/min IV .Bolus ONE Stop: 03/08/18 16:12 Last Admin: 03/08/18 16:06 Dose: 999 drops/min Sodium Chloride (Normal Saline) 500 mls @ 999 mls/hr IV .Bolus ONE Stop: 03/09/18 01:43 Last Admin: 03/09/18 01:37 Dose: 999 mls/hr Ondansetron HCl (Zofran) 4 mg IVPUSH ONETIME ONE Stop: 03/07/18 17:28 Last Admin: 03/07/18 17:28 Dose: 4 mg Pantoprazole Sodium (Protonix Iv) 80 mg IVPUSH .BOLUS ONE Stop: 03/07/18 18:13 Last Admin: 03/07/18 18:44 Dose: 80 mg Pantoprazole Sodium (Protonix Iv) 40 mg IVPUSH DAILY [facility] Last Admin: 03/08/18 08:39 Dose: 40 mg Vancomycin HCl (Pharmacy To Dose - Vancomycin) 1 dose .XX ASDIRECTED [facility] Vancomycin HCl (Vancomycin) 125 mg PO QID [facility] Last Admin: 03/08/18 09:10 Dose: Not Given - Exam General: Alert, Oriented, Cooperative, No Acute Distress Lungs: Clear to Auscultation, Normal Respiratory Effort Cardiovascular: Regular Rhythm, Bradycardia GI/Abdominal Exam: Normal Bowel Sounds, Soft, Non-Tender, No Organomegaly, No Distention, No Abnormal Bruit, No Mass, Pelvis Stable Extremities: Normal Inspection, Normal Range of Motion, Non-Tender, No Pedal Edema, Normal Capillary Refill Peripheral Pulses: 2+: Radial (L), Radial (R), Posterior Tibial (L), Posterior Tibial (R) Skin: Warm, Dry, Intact Neurological: No New Focal Deficit Psy/Mental Status: Alert, Normal Affect, Normal Mood - Problem List & Annotations (1) C. difficile colitis SNOMED Code(s): 003746415 Code(s): A04.72 - ENTEROCOLITIS D/T CLOSTRIDIUM DIFFICILE, NOT SPCF RECUR Status: Acute Current Visit: Yes (2) Hypotension SNOMED Code(s): 40739224 Code(s): I95.9 - HYPOTENSION, UNSPECIFIED Status: Acute Current Visit: Yes Qualifiers: Hypotension type: unspecified hypotension type Qualified Code(s): I95.9 - Hypotension, unspecified (3) Occult blood positive stool SNOMED Code(s): 09743495, 454696383 Code(s): R19.5 - OTHER FECAL ABNORMALITIES Status: Acute Current Visit: Yes (4) Syncope SNOMED Code(s): 207648139 Code(s): R55 - SYNCOPE AND COLLAPSE Status: Acute Current Visit: Yes Qualifiers: Syncope type: unspecified Qualified Code(s): R55 - Syncope and collapse (5) Bradycardia SNOMED Code(s): 49756788 Code(s): R00.1 - BRADYCARDIA, UNSPECIFIED Status: Acute Current Visit: No - Problem List Review Problem List Initiated/Reviewed/Updated: Yes - My Orders Last 24 Hours: My Active Orders 03/09/18 09:43 Transfer Patient (Change bed) [ADT] Routine 03/09/18 10:00 Gabapentin [Neurontin] 300 mg PO BID - Plan Plan:: 87-year-old male that is admitted with a witnessed syncopal episode, hypotension , with c diff infection #1. Syncope: -Patient remains on telemetry. Telemetry shows first-degree AV block with a heart rate in the range of 50-90. Patient denies any chest pain. Heart rate improves to between 60-70 bpm when up ambulating and he reports no dizziness. -Echocardiogram showed a normal ejection fraction and no other abnormalities. -Serial troponins were negative. -Carotid ultrasound is unremarkable. #2. Hypotension: -Currently getting IV fluids at 75 mL an hour. He has + liters since admission. Continue midodrine 10 mg 3 times a day. Blood pressure has significantly improved. -Patient is status post 2 unit of packed red blood cells. Hemoglobin has remained stable and is currently 10.7. -Kidney function is significantly improved with IV fluids and proper treatment of his C. difficile. #3. C. difficile: -Stool cultures came back positive for C. difficile. Other stool cultures were negative. -Continue IV Flagyl 500 mg 3 times a day and by mouth vancomycin 500 mg 4 times a day. Patient had 7 loose stools yesterday. He reports no abdominal pain. -White count has returned to normal. #4. Bradycardia: -Heart rate varies between 40-60 bpm. Patient is asymptomatic. Telemetry shows first-degree AV block with a heart rate in the range of 50-90. Patient denies any chest pain. Heart rate improves to between 60-70 bpm when up ambulating and he reports no dizziness. -We will continue to follow the recommendations of Dr. Peña DVT prophylaxis: SCDs. Disposition: 1-2 days pending improvement. We want to make sure the patient is not having less loose stools before discharge. <Dg Castellanos - Last Filed: 03/10/18 15:51> - Patient Data Vitals - Most Recent: Last Vital Signs Temp 97.7 F 03/10/18 11:30 Pulse 55 L 03/10/18 11:30 Resp 18 03/10/18 11:30 BP 109/63 03/10/18 11:30 Pulse Ox 99 03/10/18 11:30 Orthostatic Blood Pressure [ 127/46 Standing] Orthostatic Blood Pressure [ 115/47 Sitting] Orthostatic Blood Pressure [ 108/39 Supine] I&O - Last 24 Hours: Intake & Output 03/10/18 03/10/18 03/10/18 06:59 14:59 22:59 Intake Total 669 298 2063 Balance 079 119 6652 Lab Results Last 24 Hours: Laboratory Results - last 24 hr 03/10/18 03/10/18 Range/Units 05:33 05:33 WBC 8.96 (4.0-11.0) K/uL RBC 4.48 L (4.50-5.90) M/uL Hgb 10.7 L (13.0-17.0) g/dL Hct 34.0 L (38.0-50.0) % MCV 75.9 L (80.0-98.0) fL MCH 23.9 L (27.0-32.0) pg MCHC 31.5 (31.0-37.0) g/dL RDW Std Deviation 46.5 (28.0-62.0) fl RDW Coeff of Ellyn 17 H (11.0-15.0) % Plt Count 380 (150-400) K/uL MPV 9.80 (7.40-12.00) fL Nucleated RBC % 0.0 /100WBC Nucleated RBCs # 0 K/uL Sodium 142 (136-148) mmol/L Potassium 3.9 (3.5-5.1) mmol/L Chloride 112 H (98-107) mmol/L Carbon Dioxide 21.5 (21.0-32.0) mmol/L BUN 22 H (7.0-18.0) mg/dL Creatinine 1.1 (0.8-1.3) mg/dL Est Cr Clr Drug Dosing 45.49 mL/min Estimated GFR (MDRD) > 60.0 ml/min Glucose 84 (74-106) mg/dL Calcium 8.7 (8.5-10.1) mg/dL Kevin Results Last 24 Hours: Microbiology 03/08/18 05:30 Stool Culture - Final Stool / Feces NO SALMONELLA, SHIGELLA,OR E.COLI O157 ISOLATED Campylobacter Antigen Assay - Final NEGATIVE CAMPYLOBACTER AG - Final NEGATIVE FOR SHIGA TOXIN 1 - Final NEGATIVE FOR SHIGA TOXIN 2 03/07/18 18:15 Aerobic Blood Culture - Preliminary Blood - Venous - Lab Draw NO GROWTH AFTER 2 DAYS Anaerobic Blood Culture - Preliminary NO GROWTH AFTER 2 DAYS 03/07/18 17:26 Aerobic Blood Culture - Preliminary Blood - Venous NO GROWTH AFTER 2 DAYS Anaerobic Blood Culture - Preliminary NO GROWTH AFTER 2 DAYS Med Orders - Current: Current Medications Acetaminophen (Tylenol) 650 mg PO Q6H PRN PRN Reason: Pain Last Admin: 03/08/18 17:35 Dose: 650 mg Gabapentin (Neurontin) 300 mg PO BID [facility] Last Admin: 03/10/18 08:38 Dose: 300 mg Metronidazole 500 mg/ Premix 100 mls @ 100 mls/hr IV TID [facility] Last Admin: 03/10/18 13:21 Dose: 100 mls/hr Lactated Ringer's (Ringers, Lactated) 1,000 mls @ 75 mls/hr IV ASDIRECTED [facility] Last Admin: 03/10/18 13:24 Dose: 75 mls/hr Midodrine (Midodrine) 10 mg PO TIDAC [facility] Last Admin: 03/10/18 11:24 Dose: 10 mg Sodium Chloride (Saline Flush) 10 ml FLUSH ASDIRECTED PRN PRN Reason: Keep Vein Open Sodium Chloride (Saline Flush) 2.5 ml FLUSH ASDIRECTED PRN PRN Reason: Keep Vein Open Vancomycin HCl (Vancomycin) 500 mg PO QID [facility] Last Admin: 03/10/18 11:26 Dose: 500 mg Discontinued Medications Hydrocortisone Sodium Succinate (Solu-Cortef) 100 mg IVPUSH Q8H [facility] Last Admin: 03/08/18 05:52 Dose: 100 mg Sodium Chloride (Normal Saline) 1,000 mls @ 999 mls/hr IV STAT ONE Stop: 03/07/18 18:29 Last Admin: 03/07/18 17:31 Dose: 999 mls/hr Sodium Chloride (Normal Saline) 1,000 mls @ 999 mls/hr IV STAT ONE Stop: 03/07/18 19:51 Last Admin: 03/07/18 18:52 Dose: 999 mls/hr Lactated Ringer's (Ringers, Lactated) 1,000 mls @ 999 mls/hr IV ONETIME ONE Stop: 03/07/18 22:56 Last Admin: 03/07/18 23:27 Dose: Not Given Lactated Ringer's (Ringers, Lactated) 1,000 mls @ 125 mls/hr IV ASDIRECTED [facility] Last Infusion: 03/09/18 22:00 Dose: 125 mls/hr Piperacillin Sod/Tazobactam (Sod 3.375 gm/ Sodium Chloride) 50 mls @ 100 mls/ hr IV Q8H [facility] Last Admin: 03/08/18 08:00 Dose: 100 mls/hr Vancomycin HCl 1 gm/ Sodium (Chloride) 250 mls @ 166 mls/hr IV Q24H [facility] Last Admin: 03/08/18 01:52 Dose: 166 mls/hr Sodium Chloride (Normal Saline) 1,000 mls @ 999 drops/min IV .Bolus ONE Stop: 03/08/18 16:12 Last Admin: 03/08/18 16:06 Dose: 999 drops/min Sodium Chloride (Normal Saline) 500 mls @ 999 mls/hr IV .Bolus ONE Stop: 03/09/18 01:43 Last Admin: 03/09/18 01:37 Dose: 999 mls/hr Ondansetron HCl (Zofran) 4 mg IVPUSH ONETIME ONE Stop: 03/07/18 17:28 Last Admin: 03/07/18 17:28 Dose: 4 mg Pantoprazole Sodium (Protonix Iv) 80 mg IVPUSH .BOLUS ONE Stop: 03/07/18 18:13 Last Admin: 03/07/18 18:44 Dose: 80 mg Pantoprazole Sodium (Protonix Iv) 40 mg IVPUSH DAILY [facility] Last Admin: 03/08/18 08:39 Dose: 40 mg Vancomycin HCl (Pharmacy To Dose - Vancomycin) 1 dose .XX ASDIRECTED [facility] Vancomycin HCl (Vancomycin) 125 mg PO QID [facility] Last Admin: 03/08/18 09:10 Dose: Not Given - Problem List & Annotations (1) Hypotension SNOMED Code(s): 76325453 Code(s): I95.9 - HYPOTENSION, UNSPECIFIED Status: Acute Current Visit: Yes Qualifiers: Hypotension type: unspecified hypotension type Qualified Code(s): I95.9 - Hypotension, unspecified (2) Occult blood positive stool SNOMED Code(s): 86386453, 547766862 Code(s): R19.5 - OTHER FECAL ABNORMALITIES Status: Acute Current Visit: Yes (3) Syncope SNOMED Code(s): 482030483 Code(s): R55 - SYNCOPE AND COLLAPSE Status: Acute Current Visit: Yes Qualifiers: Syncope type: unspecified Qualified Code(s): R55 - Syncope and collapse (4) Bradycardia SNOMED Code(s): 87608035 Code(s): R00.1 - BRADYCARDIA, UNSPECIFIED Status: Acute Current Visit: No - Problem List Review Problem List Initiated/Reviewed/Updated: Yes - My Orders Last 24 Hours: My Active Orders 03/11/18 05:00 CBC W/O DIFF,HEMOGRAM [HEME] DAILY 03/11/18 05:11 BASIC METABOLIC PANEL,BMP [CHEM] AM 03/12/18 05:00 CBC W/O DIFF,HEMOGRAM [HEME] DAILY 03/12/18 05:11 BASIC METABOLIC PANEL,BMP [CHEM] AM 03/13/18 05:00 CBC W/O DIFF,HEMOGRAM [HEME] DAILY 03/14/18 05:00 CBC W/O DIFF,HEMOGRAM [HEME] DAILY - Plan Plan:: Patient seen and examined with resident , agree with assessment and plan.Patient will need 10 days of Iv metronidazole and po vancomycine.
[2018-03-10] MEDS: Lactated Ringers 1,000 ML IV SCH (13:24)
--- NOTE | 2018-03-10 17:59 | ECHO ---
The echocardiogram report can be seen in this patient's EMR (electronic medical record) in the Reports section. The echocardiogram report has also been scanned into PACS and can be seen there. REGGIE
[2018-03-11] MEDS: Lactated Ringers 1,000 ML IV SCH (02:32)
[2018-03-11] MEDS: metroNIDAZOLE/Normal Saline 500 MG in Premix Bag 1 BAG IV SCH (05:43)
[2018-03-11] MEDS: Vancomycin 1,000 MG SDV PO SCH ×2 (05:45→12:16)
[2018-03-11 06:55] LABS: CHLORIDE,CL 112 mmol/L (98-107); SODIUM,NA 142 mmol/L (136-148)
[2018-03-11] MEDS: Midodrine 5 MG Tab PO SCH ×2 (08:46→12:11)
[2018-03-11] MEDS: Gabapentin 300 MG Cap PO SCH (08:47)
[2018-03-11 12:16] VITALS: BP 108/51
== END 2018-03-11 12:20 | disposition home or self-care (01) | DRG 312 ==
LOC: MW.ED 17:09 → MW.MS 19:03 → OBSVTOIN 20:57 → MW.ICU 21:01 → MW.MS 03-09 11:29
PROVIDERS: ADMIT Internal Medicine; ATTEND Internal Medicine
PROC: 30233N1 Transfusion of Nonautologous Red Blood Cells into Peripheral Vein, Percutaneous Approach (ICD-10-PCS; principal; 2018-03-07)
DX: R55 Syncope and collapse (principal); I69.354 Hemiplegia and hemiparesis following cerebral infarction affecting left non-dominant side; A04.72 Enterocolitis due to Clostridium difficile, not specified as recurrent; D64.9 Anemia, unspecified; N28.9 Disorder of kidney and ureter, unspecified; D50.0 Iron deficiency anemia secondary to blood loss (chronic); I95.9 Hypotension, unspecified; R00.1 Bradycardia, unspecified; R19.5 Other fecal abnormalities; R10.32 Left lower quadrant pain; R19.7 Diarrhea, unspecified; I10 Essential (primary) hypertension; F17.200 Nicotine dependence, unspecified, uncomplicated; Z88.2 Allergy status to sulfonamides; Z79.899 Other long term (current) drug therapy
CPT/HCPCS: 36415; 36430; 70450; 70450-26; 71045; 71045-26; 80048; 80053; 80202; 81001; 83605; 83735; 84100; 84484; 85025; 85027; 85610; 86677; 86850; 86900; 86901; 86920; 86921; 86922; 87040; 87046; 87086; 87324; 87899; 93005; 93306; 93880; 93880-26; 96361; 96374; 99284; 99285-25; A9270-GY; C9113; J1720; J2405; J2543; J3370; J7040; J7050; J7120; P9016

== ENCOUNTER 2019-05-04 21:01 | Emergency (ER) | payer MEDICARE ==
[2019-05-04 21:46] LABS: CHLORIDE,CL 105 mmol/L (98-107); SODIUM,NA 138 mmol/L (136-148)
--- NOTE | 2019-05-04 22:50 | EDM.PDOC ---
ED HPI GENERAL MEDICAL PROBLEM - General Chief Complaint: Gastrointestinal Problem Stated Complaint: POSS CDIFF Time Seen by Provider: 05/04/19 22:47 Source of Information: Reports: Patient - History of Present Illness INITIAL COMMENTS - FREE TEXT/NARRATIVE: HISTORY AND PHYSICAL: History of present illness: Patient presents with possibility of C. difficile he has a history of C. difficile last year is had multiple loose stools since Thursday watery in nature denies any eva blood or mucus no abdominal pain no fever nausea vomiting chills sweats no chest pain shortness breath headache dizziness or palpitation no urine symptoms Patient after extended stay here in the ER was unable to provide a stool sample him a request to go home he was offered observation admission however he received desires to leave will provide collection equipment and he agrees to return sample sometime in the morning Review of systems: As per history of present illness and below otherwise all systems reviewed and negative. Past medical history: As per history of present illness and as reviewed below otherwise noncontributory. Surgical history: As per history of present illness and as reviewed below otherwise noncontributory. Social history: No reported history of drug or alcohol abuse. Family history: As per history of present illness and as reviewed below otherwise noncontributory. Physical exam: HEENT: Atraumatic, normocephalic, pupils reactive, negative for conjunctival pallor or scleral icterus, mucous membranes moist, throat clear, neck supple, nontender, trachea midline. Lungs: Clear to auscultation, breath sounds equal bilaterally, chest nontender. Heart: S1S2, regular, negative for clicks, rubs, or JVD. Abdomen: Soft, nondistended, nontender. Negative for masses or hepatosplenomegaly. Negative for costovertebral tenderness. Pelvis: Stable nontender. Genitourinary: Deferred. Rectal: Deferred. Extremities: Atraumatic, negative for cords or calf pain. Neurovascular unremarkable. Neuro: Awake, alert, oriented. Cranial nerves II through XII unremarkable. Cerebellum unremarkable. Motor and sensory unremarkable throughout. Exam nonfocal. Diagnostics: [CBC CMP UA Stool]ALT are C. difficile guaiac was ordered however patient unable to provide sample Therapeutics: [ a shunt provided collection equipment and will return stool sample available, he desires to return home as he is unable to pass stool at this time ] Impression: [ gastroenteritis History of C. difficile Chronic history of baseline] Definitive disposition and diagnosis as appropriate pending reevaluation and review of above. no pain Pain Score (Numeric/FACES): 0 - Related Data Allergies Allergy/AdvReac Type Severity Reaction Status Date / Time Sulfa (Sulfonamide Allergy Mild Rash Verified 03/07/17 16:42 Antibiotics) Home Meds: Home Meds Gabapentin [Neurontin] 300 mg PO BID 12/10/15 [History] Midodrine 10 mg PO TIDAC #90 tab 03/11/18 [Rx] Vancomycin 125 mg PO Q6H #24 cap 03/11/18 [Rx] metroNIDAZOLE/Normal Saline [Flagyl 500 MG in NS 100 ML] 500 mg IV TID 5 Days bag 03/11/18 [Rx] Past Medical History HEENT History: Reports: None Cardiovascular History: Reports: Hypertension Other Cardiovascular History: "low heart rate" Respiratory History: Reports: None Gastrointestinal History: Reports: None, Other (See Below) Other Gastrointestinal History: heartburn Genitourinary History: Reports: Prostate Disorder Musculoskeletal History: Reports: Arthritis, Other (See Below) Other Musculoskeletal History: Weakness to one side, uses cane Neurological History: Reports: CVA Psychiatric History: Reports: None Endocrine/Metabolic History: Reports: None Hematologic History: Reports: Blood Transfusion(s) Immunologic History: Reports: None Oncologic (Cancer) History: Reports: None Dermatologic History: Reports: None - Infectious Disease History Infectious Disease History: Reports: C-Difficile, Chicken Pox, Measles - Past Surgical History GI Surgical History: Reports: Cholecystectomy Neurological Surgical History: Reports: Other (See Below) Musculoskeletal Surgical History: Reports: Hip Replacement, Other (See Below) Social & Family History - Family History Family Medical History: Noncontributory Oncologic: Reports: Esophageal - Tobacco Use Smoking Status *Q: Current Some Day Smoker Years of Tobacco use: 20 Packs/Tins Daily: 0.1 - Caffeine Use Caffeine Use: Reports: Coffee - Recreational Drug Use Recreational Drug Use: No ED ROS GENERAL - Review of Systems Review Of Systems: See Below ED EXAM, GENERAL - Physical Exam Exam: See Below Course - Vital Signs Last Recorded V/S: Last Vital Signs Temp 97.5 F 05/04/19 21:14 Pulse 97 05/04/19 21:14 Resp 16 05/04/19 21:14 BP 143/66 H 05/04/19 21:14 Pulse Ox 97 05/04/19 21:14 - Orders/Labs/Meds Orders: Active Orders 24 hr Category Date Time Status Hemoccult [Fecal Occult Blood Collection] [RC] Care 05/04/19 21:13 Active ASDIRECTED CDIFF TOX A+B [OP] Stat Lab 05/04/19 21:12 Ordered CULTURE STOOL + CAMPY+SHIGATOX [RM] Stat Lab 05/04/19 21:12 Ordered OVA & PARASITES BY IMMUNOASSAY [MREF] Stat Lab 05/04/19 21:12 Ordered Isolation [COMM] Stat Oth 05/04/19 21:13 Ordered Labs: Laboratory Tests 05/04/19 05/04/19 05/04/19 Range/Units 21:20 21:20 21:20 WBC 10.99 (4.0-11.0) K/uL RBC 4.81 (4.50-5.90) M/uL Hgb 11.0 L (13.0-17.0) g/dL Hct 36.5 L (38.0-50.0) % MCV 75.9 L (80.0-98.0) fL MCH 22.9 L (27.0-32.0) pg MCHC 30.1 L (31.0-37.0) g/dL RDW Std Deviation 46.4 (28.0-62.0) fl RDW Coeff of Ellyn 17 H (11.0-15.0) % Plt Count 425 H (150-400) K/uL MPV 9.80 (7.40-12.00) fL Neut % (Auto) 78.2 (48.0-80.0) % Lymph % (Auto) 12.6 L (16.0-40.0) % [place] % (Auto) 6.1 (0.0-15.0) % Eos % (Auto) 2.6 (0.0-7.0) % Baso % (Auto) 0.5 (0.0-1.5) % Neut # (Auto) 8.6 H (1.4-5.7) K/uL Lymph # (Auto) 1.4 (0.6-2.4) K/uL [place] # (Auto) 0.7 (0.0-0.8) K/uL Eos # (Auto) 0.3 (0.0-0.7) K/uL Baso # (Auto) 0.1 (0.0-0.1) K/uL Nucleated RBC % 0.0 /100WBC Nucleated RBCs # 0 K/uL Sodium 138 (136-148) mmol/L Potassium 3.6 (3.5-5.1) mmol/L Chloride 105 (98-107) mmol/L Carbon Dioxide 25.4 (21.0-32.0) mmol/L BUN 24 H (7.0-18.0) mg/dL Creatinine 1.0 (0.8-1.3) mg/dL Est Cr Clr Drug Dosing 43.89 mL/min Estimated GFR (MDRD) > 60.0 ml/min Glucose 115 H (74-106) mg/dL Calcium 8.8 (8.5-10.1) mg/dL Total Bilirubin 0.4 (0.2-1.0) mg/dL AST 20 (15-37) IU/L ALT 18 (14-63) IU/L Alkaline Phosphatase 79 (46-116) U/L Total Protein 6.7 (6.4-8.2) g/dL Albumin 3.4 (3.4-5.0) g/dL Globulin 3.3 (2.6-4.0) g/dL Albumin/Globulin Ratio 1.0 (0.9-1.6) Urine Color YELLOW Urine Appearance CLEAR Urine pH 5.0 (5.0-8.0) Ur Specific [place] >= 1.030 (1.001-1.035) Urine Protein NEGATIVE (NEGATIVE) mg/dL Urine Glucose (UA) NEGATIVE (NEGATIVE) mg/dL Urine Ketones NEGATIVE (NEGATIVE) mg/dL Urine Occult Blood NEGATIVE (NEGATIVE) Urine Nitrite NEGATIVE (NEGATIVE) Urine Bilirubin NEGATIVE (NEGATIVE) Urine Urobilinogen 0.2 (<2.0) EU/dL Ur Leukocyte Esterase NEGATIVE (NEGATIVE) Departure - Departure Time of Disposition: 22:49 Disposition: Home, Self-Care 01 Condition: Good Clinical Impression: Gastroenteritis - Discharge Information Referrals: Nestor Ceballos MD [Primary Care Provider] - Additional Instructions: Stool collection equipment provided Return stool one available tonight during the morning at your convenience for testing Return if symptoms persist or worsen or if new concerning symptoms develop [facility] [address] [place] [id number] The following information is given to patients seen in the emergency department who are being discharged to home. This information is to outline your options for follow-up care. We provide all patients seen in our emergency department with a follow-up referral. The need for follow-up, as well as the timing and circumstances, are variable depending upon the specifics of your emergency department visit. If you don't have a primary care physician on staff, we will provide you with a referral. We always advise you to contact your personal physician following an emergency department visit to inform them of the circumstance of the visit and for follow-up with them and/or the need for any referrals to a consulting specialist. The emergency department will also refer you to a specialist when appropriate. This referral assures that you have the opportunity for follow-up care with a specialist. All of these measure are taken in an effort to provide you with optimal care, which includes your follow-up. Under all circumstances we always encourage you to contact your private physician who remains a resource for coordinating your care. When calling for follow-up care, please make the office aware that this follow-up is from your recent emergency room visit. If for any reason you are refused follow-up, please contact the [facility] emergency department at and asked to speak to the emergency department charge nurse.
[2019-05-04 23:04] VITALS: BP 140/70
== END 2019-05-04 23:00 | disposition home or self-care (01) ==
LOC: MW.ED 21:01
DX: A04.72 Enterocolitis due to Clostridium difficile, not specified as recurrent (principal); I10 Essential (primary) hypertension; F17.210 Nicotine dependence, cigarettes, uncomplicated; Z79.899 Other long term (current) drug therapy; Z88.2 Allergy status to sulfonamides
CPT/HCPCS: 36415; 80053; 81003; 85025; 87046; 87324; 87328; 87329; 87899; 99282; 99284